=== PATIENT | female | born 1995 | race Caucasian/White ===

== ENCOUNTER → 2017-08-02 11:06 | Outpatient (CLI) | payer MEDICAID, SELFPAY ==
[2017-08-02 11:37] LABS: Absolute Lymphocyte Count 1.91 X10^3/ul (0.83-4.51); Absolute Neutrophil Count 7.8 X10^3/uL (2.0-7.7); Basophil# 0.01 X10^3/uL; Basophil% 0.1 % (0-1); Eosinophil# 0.21 X10^3/uL; Hematocrit 38.7 % (37-47); Hemoglobin 12.4 g/dl (12.0-15.0); Lymphocyte # 1.91 X10^3/ul (4.0); Lymphocyte % 18.1 % (19-41); Mean Corpuscular Hgb 29.9 pg (27.0-32.0); Mean Corpuscular Volume 93.3 fL (81-99); Mean Platelet Vol. 11.1 fl (6.2-12.0); Monocyte% 5.7 % (0-10); Neutrophil # 7.81 X10^3/uL (2.7-7.7); Neutrophil % 73.7 % (47-70); Platelet Count 223 K/mm3 (150-450); RBC Distribution Width CV 14.4 % (11.6-14.6); RBC Distribution Width SD 48.6 fl (35.1-43.9); Red Blood Count 4.15 M/mm3 (4.2-5.4); White Blood Count 10.6 K/mm3 (4.4-11.0)
[2017-08-02 11:39] LABS: POSITIVE COUNT NO; POSITIVE DIFFERENTIAL NO; POSITIVE MORPHOLOGY NO
[2017-08-02 11:56] LABS: Glucose Challenge Gest 1H 50g 88 mg/dL (70-140)
== END ==
PROVIDERS: Visit Provider Obstetrics & Gynecology
DX: O09.892 Supervision of other high risk pregnancies, second trimester (principal); Z3A.00 Weeks of gestation of pregnancy not specified
CPT/HCPCS: 36415; 82950; 85025

== ENCOUNTER → 2017-08-02 18:23 | Outpatient (CLI) | payer MEDICAID, SELFPAY | PROVIDERS: Visit Provider Obstetrics & Gynecology | DX: O09.892 Supervision of other high risk pregnancies, second trimester (principal); Z3A.00 Weeks of gestation of pregnancy not specified | CPT/HCPCS: 36415; 82950; 85025; 87086; 87088 ==

== ENCOUNTER 2017-08-13 14:31 | Emergency (ER) | payer MEDICAID, SELFPAY ==
[2017-08-13 14:31] VITALS: BP 144/80; PULSE 102; RESP 18; TEMP 36.6; O2SAT 97; BMI 41.9
[2017-08-13] MEDS: 0.9% Normal Saline 1,000 ML 150 ML IV (15:21)
[2017-08-13 15:37] LABS: Absolute Lymphocyte Count 2.57 X10^3/ul (0.83-4.51); Absolute Neutrophil Count 9.4 X10^3/uL (2.0-7.7); Basophil# 0.02 X10^3/uL; Basophil% 0.2 % (0-1); Eosinophil# 0.16 X10^3/uL; Eosinophils% 1.2 % (0-5); Hemoglobin 13.6 g/dl (12.0-15.0); Lymphocyte # 2.57 X10^3/ul (4.0); Lymphocyte % 19.8 % (19-41); Mean Corp Hgb Conc 32.4 g/gl (32-36); Mean Corpuscular Volume 92.5 fL (81-99); Mean Platelet Vol. 10.9 fl (6.2-12.0); Monocyte# 0.81 X10^3/uL; Monocyte% 6.2 % (0-10); Neutrophil # 9.39 X10^3/uL (2.7-7.7); Neutrophil % 72.1 % (47-70); Platelet Count 240 K/mm3 (150-450); RBC Distribution Width CV 14.3 % (11.6-14.6); Red Blood Count 4.54 M/mm3 (4.2-5.4)
[2017-08-13 15:38] LABS: POSITIVE COUNT NO; POSITIVE DIFFERENTIAL NO; POSITIVE MORPHOLOGY NO
[2017-08-13 15:54] LABS: AST(SGOT) 14 U/L (15-37); Alanine Aminotransfer ALT/SGPT 15 U/L (13-56); Albumin, Serum 3.2 g/dL (3.2-5.0); Alkaline Phosphatase 86 U/L (45-117); Anion Gap 12 (5-15); BUN 8 mg/dL (7-18); Bilirubin, Direct 0.08 mg/dL (0.00-0.30); Calcium,Total 9.2 mg/dL (8.5-10.1); Chloride 106 mmol/L (98-107); Creatinine, Serum 0.53 mg/dL (0.55-1.02); EST Glomerular Filtration Rate 151 mL/min (>60); Est Glom Filt Rate - Afr Amer 183 mL/min (>60); Estimated Creatinine Clearance 149.82 ml/min; Globulin 4.7 g/dL (2.2-4.2); Glucose 66 mg/dL (74-106); Potassium 3.5 mmol/L (3.5-5.1); Protein, Total 7.9 g/dL (6.4-8.2); Sodium Level 141 mmol/L (136-145); Uric Acid 4.4 mg/dL (2.6-6.0)
[2017-08-13 16:06] LABS: Mucous, Urine 0 SEEN /hpf (<or=2+)
[2017-08-13 16:07] LABS: Color, Urine Yellow (Yellow); Glucose, Dipstick Normal (Normal); Leukocyte Esterase-Dipstick 100 /ul (Negative); Nitrite-Dipstick Negative (Negative); Occult Blood-Urine 25 /ul (Negative); Protein-Dipstick Negative (Negative); Specific Gravity, Urine 1.025 (1.002-1.030); Urine Bilirubin Dipstick Negative (Negative); Urine Clarity Sl. Cloudy (Clear); Urine Urobilinogen Normal (Normal)
[2017-08-13 16:30] VITALS: BP 120/72; PULSE 93; RESP 16; O2SAT 97
[2017-08-13 16:48] LABS: Ketone-Dipstick 150 mg/dl (Negative)
[2017-08-13 16:50] LABS: Red Blood Cells-Urine 0-5 SEEN /hpf (0-5); White Blood Cells 5-10 SEEN /hpf (0-5)
[2017-08-13 16:51] LABS: Bacteria 2+ /hpf (None Seen); Squamous Epithelial Cells - UA 10-25 SEEN /hpf (5-10)
--- NOTE | 2017-08-13 17:08 | ED.DCSUM_ITS ---
- ER Visit Summary Date of Service: 08/13/17 Chief Complaint: Multitude of symptoms History of Present Illness: The patient is a 21 F who is 28 weeks gestation was sent in by her OB Dr. Dorothy Mcdermott because of concern for possible PE as well as elevated blood pressure. Patient states last 2 visits to the office her blood pressure was elevated. She does not have history of hypertension. She does complain of intermittent global headache. She denies any double vision, blurred vision, loss of vision or change in vision. She denies any ringing in her ears decreased hearing or problems with balance. She denies trouble with speech or swallowing. She denies paresthesia, anesthesia motor because of her extremities. She denies any chest pain presently. Her chest pain is migratory as is her abdominal pain. She also complains of intermittent shortness of breath. She does complain of nausea without vomiting diarrhea. She does have frequency without dysuria, hematuria or urgency. She denies any leg pain or discoloration. She states her ankles are swollen and this is a new finding since last office visit. There is no history of trauma. She denies any skin lesions. There is no history of PE or DVT. She has been 3 times with 1 miscarriage. This is her third . Physical Examination: Initial blood pressure is elevated 144/80. She had several blood pressures. The next blood pressure was 146/77, repeat was 132/72 and most recent was systolic of 126. Head is atraumatic normocephalic. Pupils are equal round reactive. Extraocular muscles are intact. TMs are pearly white with landmarks noted. Nares patent with no drainage. Posterior pharynx without erythema or exudate. Uvula is midline. There is no dysphonia or dysphasia. Trachea is midline. There is no stridor with auscultation of the neck. Heart is regular without murmur, gallop or rub. S1 and S2 are normal. Lungs are clear to auscultation with good movement of air bilaterally. Abdomen is soft nontender with gravid uterus. heart tones were documented by nurse and recorded. There is no CVA tenderness noted. There is minimal edema of both right and left ankle and feet. Patient is alert and oriented ?3. Motor is 5 over 5. Sensory is intact. DTRs are symmetric with no clonus or Babinski sign. Cranial 2 through 12 are intact. Cerebellar testing is normal. Test Results: White count is elevated 13.0 thousand otherwise CBC normal. Electro panels marked for glucose of 66. Hepatic is normal. Uric acid is normal. Urine is contaminated specimen with 25 epithelial cells. No protein was noted. Emergency Department Course and Treatment: To evaluate patient's edema and complaint of headache with elevated blood pressure CBC, hepatic, BMP, uric acid and UA were obtained. Her history is not consistent with a pulmonary embolus. One would not expect migratory pain and intermittent shortness of breath. Treatment Plan: Dr. Dorothy Araujo was paged after results were known. She was informed of the blood pressure and objective findings. She also was told that the history the patient gave me was different than hers and I am not concerned for pulmonary embolus. She requested patient contact office for follow-up on Tuesday or Tuesday because of the elevated blood pressure and edema. Disposition: Discharge to home with follow-up in 2-3 days Impression: 1. Elevated blood pressure in patient 2. Bilateral pedal edema 3. Migratory chest and abdominal pain 4. Intermittent shortness of breath 5. Headache of unknown etiology This note was generated with [employer] dictation software. It may contain incorrect words, spelling, and punctuation that were not noted in review of the chart prior to signing ED Disposition - Plan for ED Patient: Disposition: Home or Assisted Living Chief Complaint: Shortness of Breath Instructions: ED Hypertension Poss Referrals: Dieter Flores [Primary Care Provider] - Dorothy Mcdermott MD [STAFF PHYSICIAN] - 2 Days Additional Instructions: Call Dr. Dorothy Mcdermott's office on Tuesday to be seen on Tuesday or Tuesday. If you develop a severe headache or have difficulty breathing or swelling of one leg return to the emergency department
[2017-08-13 17:24] VITALS: BP 133/76; PULSE 91; RESP 16; TEMP 36.6; O2SAT 98
== END 2017-08-13 17:25 | disposition home or self-care (01) ==
PROVIDERS: Emergency Provider Emergency Medicine
DX: O26.893 Other specified pregnancy related conditions, third trimester (principal); R03.0 Elevated blood-pressure reading, without diagnosis of hypertension; O12.03 Gestational edema, third trimester; O99.213 Obesity complicating pregnancy, third trimester; R07.9 Chest pain, unspecified; R10.9 Unspecified abdominal pain; R06.02 Shortness of breath; R11.0 Nausea; Z3A.28 28 weeks gestation of pregnancy
CPT/HCPCS: 80048; 80076; 81001; 84550; 85025; 96360; 96361; 99284; J7030; A4216

== ENCOUNTER 2017-08-15 12:15 | Outpatient (CLI) | payer MEDICAID, SELFPAY ==
[2017-08-15 12:41] VITALS: BMI 43.0
[2017-08-15] MEDS: Nitrofurantoin Macrocrystals 100 MG Capsule PO (13:16)
[2017-08-15 13:19] LABS: Hematocrit 36.9 % (37-47); Hemoglobin 12.2 g/dl (12.0-15.0); Mean Corp Hgb Conc 33.1 g/gl (32-36); Mean Corpuscular Hgb 30.3 pg (27.0-32.0); Mean Corpuscular Volume 91.8 fL (81-99); Mean Platelet Vol. 11.1 fl (6.2-12.0); Platelet Count 233 K/mm3 (150-450); RBC Distribution Width CV 14.2 % (11.6-14.6); RBC Distribution Width SD 46.7 fl (35.1-43.9); Red Blood Count 4.02 M/mm3 (4.2-5.4); White Blood Count 12.2 K/mm3 (4.4-11.0)
[2017-08-15 13:21] LABS: Scan Indicated on CBC? Y/N NO
[2017-08-15 13:23] LABS: Partial Thromboplast Time 29.4 Seconds (24.1-36.2)
[2017-08-15 13:25] LABS: Protein, Urine (Random) 10.8 mg/dL (<11.9); Protein:Creat Ratio 89 mg/g CRE (0-200)
[2017-08-15 13:26] LABS: AST(SGOT) 12 U/L (15-37); Alanine Aminotransfer ALT/SGPT 13 U/L (13-56); Creatinine, Serum 0.41 mg/dL (0.55-1.02); EST Glomerular Filtration Rate 206 mL/min (>60); Est Glom Filt Rate - Afr Amer 250 mL/min (>60); Estimated Creatinine Clearance 193.67 ml/min; Uric Acid 4.5 mg/dL (2.6-6.0)
--- NOTE | 2017-08-16 01:55 | OB.TRI.NOTE ---
History of Present Illness Date of Service: 08/15/17 Was patient seen by the physician?: Yes Reason For Visit: R/O PIH Date of Service: 08/16/17 Gestational age: 27w6d History of Present Illness: 21 yo @ 27w6d presents with elevated bps in the office. she has had normal bps in and has had increasing fatigue and myalgias today, total body discomfort and then had elevated bps in the office. bps here on l and d are all within normal limits. ROS: general: see hpi GI: negative gas pump attendant: no vb lof no regualr ctx, feels good fm Home Medications Medication Instructions Recorded 1 tab PO QDAY 05/19/17 vitamin,calcium,svflmcva-epae-luytx acid tablet Allergies No Known Allergies Allergy (Verified 08/15/17 11:13) - Pertinent Past Medical History Pertinent Past Medical History: negative Physical Exam General: Alert Cardiovascular: Regular rate Lungs: Clear to auscultation Abdomen: Soft, Non Tender, Gravid NST - FHR Rate Baby A Baseline: 140 Variability:: Moderate Accelerations:: 10 x 10 Decelerations:: None NST Reactive:: Yes, Appropriate for gestational age FHR Category:: Category I Uterine Activity:: no regular ctx Impression/Plan initially seen for elevated bp- all bps now are WNL, normal preeclampsia labs, dc home preeclampsia precautions and fu in office in 1 week
--- NOTE | 2017-08-16 01:58 | OB.TRI.HP_ITS ---
History of Present Illness Date of Service: 08/15/17 Was patient seen by the physician?: Yes Reason For Visit: R/O PIH Date of Service: 08/16/17 Gestational age: 27w6d History of Present Illness: 21 yo @ 27w6d presents with elevated bps in the office. she has had normal bps in and has had increasing fatigue and myalgias today, total body discomfort and then had elevated bps in the office. bps here on l and d are all within normal limits. ROS: general: see hpi GI: negative investment counselor: no vb lof no regualr ctx, feels good fm Home Medications Medication Instructions Recorded 1 tab PO QDAY 05/19/17 vitamin,calcium,wqovszhf-pffr-dgkgp acid tablet Allergies No Known Allergies Allergy (Verified 08/15/17 11:13) - Pertinent Past Medical History Pertinent Past Medical History: negative Physical Exam General: Alert Cardiovascular: Regular rate Lungs: Clear to auscultation Abdomen: Soft, Non Tender, Gravid NST - FHR Rate Baby A Baseline: 140 Variability:: Moderate Accelerations:: 10 x 10 Decelerations:: None NST Reactive:: Yes, Appropriate for gestational age FHR Category:: Category I Uterine Activity:: no regular ctx Impression/Plan initially seen for elevated bp- all bps now are WNL, normal preeclampsia labs, dc home preeclampsia precautions and fu in office in 1 week
== END 2017-08-15 13:50 | disposition home or self-care (01) ==
LOC: WPOUT 12:26 → WP 12:41
PROVIDERS: Visit Provider Obstetrics & Gynecology
DX: O14.92 Unspecified pre-eclampsia, second trimester (principal); Z3A.27 27 weeks gestation of pregnancy
CPT/HCPCS: 36415; 59025; 59050; 82565; 82570; 84156; 84450; 84460; 84550; 85027; 85610; 85730; 99218; G0378

== ENCOUNTER 2017-08-22 09:30 | Outpatient (CLI) | payer MEDICAID, SELFPAY ==
--- NOTE | 2017-08-22 09:33 | US_ITS ---
STUDY: SECOND AND THIRD TRIMESTER OBSTETRICAL ULTRASOUND - LIMITED REASON FOR EXAM: Female, 21 years old. Placenta previa noted on previous study growth LMP: PRIOR ULTRASOUND: None. TECHNIQUE: Transabdominal ultrasound evaluation was performed. FINDINGS: There is a single intrauterine fetus. The fetus is in a cephalic presentation. There is demonstrated cardiac activity with a heart rate of 156 bpm. There is a normal amniotic fluid volume. The largest amniotic fluid pocket measures 4.7 cm. The amniotic fluid index (DOC) is 15.2 cm. The placenta is posterior in location and is not low lying. There are Grade 0 placental changes. The cervix measures 3.8 cm in length. BIOMETRY: BPD: 6.9: 28 weeks, 0 days HC: 26.1: 28 weeks, 4 days AC: 24.0: 28 weeks, 3 days FL: 5.3: 28 weeks, 2 days Age by LMP: 28 weeks, 6 days. ANASTASIIA by LMP: November 08, 2017. age by current US: 28 weeks, 3 days. ANASTASIIA by current US: November 11, 2017. Estimated weight: 1202 grams, +/- 176 grams, 19 percentile. US/OB Limited With Biometrics IMPRESSION: age by current US: 28 weeks, 3 days. ANASTASIIA by current US: November 11, 2017. Estimated weight: 1202 grams, +/- 176 grams, 19 percentile. Electronically Signed: Alisa Briceno MD at 3:30 EDT Tel , Service support ,
[2017-08-22 12:44] VITALS: BMI 43.6
[2017-08-22] MEDS: Betamethasone/Betamethasone 30 MG/5 ML Vial 12 MG IM (13:22)
[2017-08-22 13:26] LABS: Hematocrit 37.7 % (37-47); Hemoglobin 12.2 g/dl (12.0-15.0); Mean Corp Hgb Conc 32.4 g/gl (32-36); Mean Corpuscular Hgb 29.8 pg (27.0-32.0); Mean Platelet Vol. 11.1 fl (6.2-12.0); Platelet Count 240 K/mm3 (150-450); RBC Distribution Width CV 14.4 % (11.6-14.6); RBC Distribution Width SD 48.4 fl (35.1-43.9); White Blood Count 12.2 K/mm3 (4.4-11.0)
[2017-08-22 13:27] LABS: Prothrombin Time (Protime)PT. 13.2 SECONDS (11.7-14.9); Scan Indicated on CBC? Y/N NO
[2017-08-22 13:28] LABS: Partial Thromboplast Time 28.4 Seconds (24.1-36.2)
[2017-08-22 13:35] LABS: AST(SGOT) 13 U/L (15-37); Alanine Aminotransfer ALT/SGPT 15 U/L (13-56); EST Glomerular Filtration Rate 162 mL/min (>60); Est Glom Filt Rate - Afr Amer 196 mL/min (>60); Estimated Creatinine Clearance 158.81 ml/min; Uric Acid 4.6 mg/dL (2.6-6.0)
[2017-08-22 14:00] LABS: Protein, Urine (Random) 6.1 mg/dL (<11.9)
[2017-08-22 14:01] LABS: Protein:Creat Ratio 93 mg/g CRE (0-200)
--- NOTE | 2017-08-23 00:21 | OB.TRI.NOTE ---
History of Present Illness Date of Service: 08/22/17 Was patient seen by the physician?: No Reason For Visit: R/O PRE Date of Service: 08/22/17 Gestational age: 28w6d History of Present Illness: elevate dbp in office, normal on l and d, labs done and WNL negative urine protein. Home Medications Medication Instructions Recorded 1 tab PO QDAY 05/19/17 vitamin,calcium,voictofo-hckq-gbxgi acid tablet citalopram 20 mg tablet 20 mg PO QDAY #30 tab 08/22/17 miscellaneous medical supply misc See Dose Instructions .ROUTE 08/22/17 .MEDSUPPLY #1 ea Allergies No Known Allergies Allergy (Verified 08/22/17 11:39) NST - FHR Rate Baby A Baseline: 140 Variability:: Moderate Accelerations:: 10 x 10 Decelerations:: None NST Reactive:: Yes FHR Category:: Category I Uterine Activity:: no Impression/Plan gestational hypertension- bloodwork urine normal bmz given fu in 24 hours for repeat dose precatuions reviewed nst reactive
== END 2017-08-22 14:30 | disposition home or self-care (01) ==
LOC: OPUS 09:31 → WPOUT 12:23 → WP 12:23
PROVIDERS: Visit Provider Obstetrics & Gynecology
DX: O16.3 Unspecified maternal hypertension, third trimester (principal); Z3A.28 28 weeks gestation of pregnancy
CPT/HCPCS: 36415; 59050; 76816; 82565; 82570; 84156; 84450; 84460; 84550; 85027; 85610; 85730; 96372; 99218; G0378; J0702

== ENCOUNTER → 2017-08-22 13:51 | Outpatient (CLI) | payer MEDICAID, SELFPAY ==
[2017-08-22 17:15] LABS: Creatinine, Urine (random) < 13.00 mg/dL (NO RANGE EST.); Protein, Urine (Random) < 6.0 mg/dL (<11.9)
== END ==
PROVIDERS: Visit Provider Obstetrics & Gynecology
DX: I10 Essential (primary) hypertension (principal)
CPT/HCPCS: 82570; 84156

== ENCOUNTER 2017-08-23 13:05 | Outpatient (CLI) | payer MEDICAID, SELFPAY ==
[2017-08-23 13:31] VITALS: BMI 43.7
[2017-08-23] MEDS: Betamethasone/Betamethasone 30 MG/5 ML Vial 12 MG IM (13:31)
== END 2017-08-23 13:40 | disposition home or self-care (01) ==
LOC: WPOUT 13:13 → WP 13:14
PROVIDERS: Visit Provider Obstetrics & Gynecology
DX: O13.3 Gestational [pregnancy-induced] hypertension without significant proteinuria, third trimester (principal); Z3A.28 28 weeks gestation of pregnancy
CPT/HCPCS: 96372; 99218; G0378; J0702

== ENCOUNTER → 2017-08-25 16:20 | Outpatient (CLI) | payer MEDICAID, SELFPAY ==
[2017-08-25 17:02] LABS: Protein:Creat Ratio 87 mg/g CRE (0-200)
== END ==
PROVIDERS: PCP Family Medicine; Visit Provider Nurse Practitioner Women's Health
DX: O13.9 Gestational [pregnancy-induced] hypertension without significant proteinuria, unspecified trimester (principal); Z3A.00 Weeks of gestation of pregnancy not specified
CPT/HCPCS: 82570; 84156

== ENCOUNTER 2017-09-18 12:15 | Outpatient (CLI) | payer MEDICAID, SELFPAY ==
[2017-09-18 12:38] VITALS: BMI 43.4
--- NOTE | 2017-09-19 18:49 | OB.TRI.NOTE ---
History of Present Illness Date of Service: 09/18/17 Was patient seen by the physician?: No Reason For Visit: HIGH BLOOD PRESSURE Date of Service: 09/18/17 Final ANASTASIIA: 11/08/17 Final ANASTASIIA Source: US <20 weeks Gestational age: 32 Weeks and 5 Days History of Present Illness: 32+ week intrauterine presents for decreased movement. She has also noticed elevated blood pressures at home. Took her blood pressure at home and it was 140 over 80s. Home Medications Medication Instructions Recorded 1 tab PO QDAY 05/19/17 vitamin,calcium,jpyndpbo-qrhx-zrnhb acid tablet citalopram 20 mg tablet 20 mg PO QDAY #30 tab 08/22/17 miscellaneous medical supply misc See Dose Instructions .ROUTE 08/22/17 .MEDSUPPLY #1 ea Allergies No Known Allergies Allergy (Verified 09/14/17 14:34) NST - FHR Rate Baby A NST Reactive:: Yes FHR Category:: Category I Impression/Plan 32+ week intrauterine with decreased movement and some elevated blood pressures noted at home. [place] some movement on way to hospital. Blood pressures upon arrival were normal. movement also noted. Reactive nonstress test. Will discharge to home with routine instructions. No other PIH symptoms noted.
--- NOTE | 2017-09-19 18:53 | OB.TRI.HP_ITS ---
History of Present Illness Date of Service: 09/18/17 Was patient seen by the physician?: No Reason For Visit: HIGH BLOOD PRESSURE Date of Service: 09/18/17 Final ANASTASIIA: 11/08/17 Final ANASTASIIA Source: US <20 weeks Gestational age: 32 Weeks and 5 Days History of Present Illness: 32+ week intrauterine presents for decreased movement. She has also noticed elevated blood pressures at home. Took her blood pressure at home and it was 140 over 80s. Home Medications Medication Instructions Recorded 1 tab PO QDAY 05/19/17 vitamin,calcium,yhkxdzrk-yflx-xcrfm acid tablet citalopram 20 mg tablet 20 mg PO QDAY #30 tab 08/22/17 miscellaneous medical supply misc See Dose Instructions .ROUTE 08/22/17 .MEDSUPPLY #1 ea Allergies No Known Allergies Allergy (Verified 09/14/17 14:34) NST - FHR Rate Baby A NST Reactive:: Yes FHR Category:: Category I Impression/Plan 32+ week intrauterine with decreased movement and some elevated blood pressures noted at home. [place] some movement on way to hospital. Blood pressures upon arrival were normal. movement also noted. Reactive nonstress test. Will discharge to home with routine instructions. No other PIH symptoms noted.
== END 2017-09-18 13:25 | disposition home or self-care (01) ==
LOC: WPOUT 12:22 → WP 12:23
PROVIDERS: PCP Family Medicine; Visit Provider Obstetrics & Gynecology
DX: O36.8130 Decreased fetal movements, third trimester, not applicable or unspecified (principal); R03.0 Elevated blood-pressure reading, without diagnosis of hypertension; Z3A.32 32 weeks gestation of pregnancy
CPT/HCPCS: 59025; 59050; 99218; G0378

== ENCOUNTER → 2017-10-11 16:58 | Outpatient (CLI) | payer MEDICAID, SELFPAY ==
[2017-10-11 18:15] LABS: Group B Strep DNA By PCR Negative (Negative); Internal Control PASS; Probe Check PASS; Specimen Processing Control PASS
== END ==
PROVIDERS: Visit Provider Obstetrics & Gynecology
DX: O09.893 Supervision of other high risk pregnancies, third trimester (principal); Z3A.00 Weeks of gestation of pregnancy not specified
CPT/HCPCS: 87081; 87653

== ENCOUNTER → 2017-10-19 14:42 | Outpatient (CLI) | payer MEDICAID, SELFPAY ==
--- NOTE | 2017-10-19 14:44 | US_ITS ---
STUDY: SECOND AND THIRD TRIMESTER OBSTETRICAL ULTRASOUND - LIMITED REASON FOR EXAM: Female, 22 years old. Growth. LMP: February 01, 2017 PRIOR ULTRASOUND: OB ultrasound August 22, 2017 TECHNIQUE: Transabdominal ultrasound evaluation was performed. FINDINGS: There is a single intrauterine fetus. The fetus is in a cephalic presentation. There is demonstrated cardiac activity with a heart rate of 140 bpm. There is a normal amniotic fluid volume. The largest amniotic fluid pocket measures 4.1 x 1.9 cm. The amniotic fluid index (DOC) is 14.68 cm. The placenta is fundal in location. There are Grade 1 placental changes. The cervix is moderately obscured, but grossly appears closed. BIOMETRY: BPD: 8.84 cm: 35 weeks, 6 days HC: 32.43 cm: 36 weeks, 5 days AC: 35.11 cm: 39 weeks, 1 days FL: 7.12 cm: 36 weeks, 4 days CI: 78% FL/BPD: 81% FL/AC: 20% HC/AC: 0.92 Age by LMP: 37 weeks, 1 days. ANASTASIIA by LMP: November 08, 2017. age by prior US: 36 weeks, 5 days. ANASTASIIA by prior US: November 11, 2017. age by current US: 37 weeks, 1 days. ANASTASIIA by current US: November 08, 2017. Estimated weight: 3304 grams, +/- 482 grams, 73 percentile. US/OB Limited With Biometrics IMPRESSION: 1. Single living intrauterine fetus showing normal interval growth since prior study. Estimated date of delivery by today's study is November 08, 2017. 2. Estimated weight is 3304 g. 3. The cervix is obscured. 4. Grade 1 fundal placenta is not low-lying. 5. Normal amniotic fluid volume with index of 14.68 cm. Electronically Signed: Nash Leon MD at 15:42 EDT , Service support ,
== END ==
PROVIDERS: PCP Family Medicine; Visit Provider Obstetrics & Gynecology
DX: O09.893 Supervision of other high risk pregnancies, third trimester (principal); Z3A.00 Weeks of gestation of pregnancy not specified
CPT/HCPCS: 76816

== ENCOUNTER 2017-11-02 14:45 | Outpatient (CLI) | payer MEDICAID, SELFPAY ==
[2017-11-02 15:42] VITALS: BMI 44.8
--- NOTE | 2017-11-05 02:56 | OB.TRI.NOTE ---
History of Present Illness Date of Service: 11/02/17 Reason For Visit: R/O LABOR Date of Service: 11/02/17 Final ANASTASIIA Source: US <20 weeks History of Present Illness: presents for ctx Allergies No Known Allergies Allergy (Verified 10/19/17 11:28) - Pertinent Past Medical History Surgical History: Past Surgical History (Last Reviewed 10/19/17 @ 11:29 by Rhea Haq) delivery delivered H/O spinal fusion History of tonsillectomy History of wisdom tooth extraction, class II edentulism NST - FHR Rate Baby A Baseline: 120-130 Variability:: Moderate Accelerations:: 15 x 15 Decelerations:: None NST Reactive:: Yes FHR Category:: Category I Uterine Activity:: q3-6 Impression/Plan false labor no cervical change dc home
== END 2017-11-02 16:07 | disposition home or self-care (01) ==
LOC: WPOUT 14:51 → WP 14:51
PROVIDERS: Family Provider Family Medicine; PCP Family Medicine; Visit Provider Obstetrics & Gynecology
DX: O34.219 Maternal care for unspecified type scar from previous cesarean delivery (principal); Z3A.00 Weeks of gestation of pregnancy not specified
CPT/HCPCS: 59050; 99218; G0378

== ENCOUNTER 2017-11-07 05:32 | Inpatient (IN) | payer MEDICAID, SELFPAY ==
[2017-11-07 05:17] VITALS: BMI 45.1
[2017-11-07 05:27] LABS: ROM Internal Control Test YES-OK TO RESULT pt. (Internal QC)
[2017-11-07 05:28] LABS: ROM Patient Test POSITIVE (Negative)
[2017-11-07] MEDS: Lactated Ringers 1,000 ML 50 ML IV (05:30)
[2017-11-07 06:24] LABS: Hematocrit 39.4 % (37-47); Hemoglobin 12.7 g/dl (12.0-15.0); Mean Corp Hgb Conc 32.2 g/gl (32-36); Mean Corpuscular Hgb 29.7 pg (27.0-32.0); Mean Corpuscular Volume 92.1 fL (81-99); Mean Platelet Vol. 11.9 fl (6.2-12.0); Platelet Count 190 K/mm3 (150-450); RBC Distribution Width CV 16.6 % (11.6-14.6); RBC Distribution Width SD 55.3 fl (35.1-43.9); Red Blood Count 4.28 M/mm3 (4.2-5.4); Scan Indicated on CBC? Y/N NO; White Blood Count 9.6 K/mm3 (4.4-11.0)
[2017-11-07] MEDS: Ondansetron 4 MG/2 ML Vial IV (09:08)
[2017-11-07] MEDS: Oxytocin 30 units/NS 500 ml 30 UNITS/500 ML IV.SOLN 334 UNITS IV (11:36)
[2017-11-07] MEDS: Oxytocin 30 units/NS 500 ml 30 UNITS/500 ML IV.SOLN 167 UNITS IV (12:06)
--- NOTE | 2017-11-07 13:00 | HP.PCM_ITS ---
- Problem List (1) Scoliosis Status: Acute Qualifiers: Comment: consultation with MFM- cleared for vaginal delivery, may have difficulty with epidural (2) Supervision of other high risk pregnancies, third trimester Status: Acute Comment: PRR ANASTASIIA 11/08/17 girl Anegla Edmonds Margarito (3) Hypertension affecting , antepartum Status: Acute Comment: spontaneously resolved in the past, no meds. normal pressures in . weekly nsts and growth us q 4 weeks, plan delivery by 39-40 weeks (4) Contraception Status: Acute Qualifiers: Comment: plan lilletta 6 wk pp (5) Anxiety during , antepartum Status: Acute Comment: celexa (6) History of delivery, antepartum Status: Acute Comment: reviewed prior operative note, plan TOLAC, 63% chance success, uptodate handout given, consent form signed. obtain MFM consult History Date of Admission: 11/07/17 Final ANASTASIIA: 11/08/17 Final ANASTASIIA Source: US <20 weeks Gestational age: 39 Weeks and 6 Days History of this : This is a 22 year-old, , at 39 weeks gestational age presents IAL 4 cm dilated and SROM Surgical History: Surgical History (Last Reviewed 10/19/17 @ 11:29 by Rhea Haq) delivery delivered O82 H/O spinal fusion Z98.1 History of tonsillectomy Z98.890, Z90.89 History of wisdom tooth extraction, class II edentulism K08.492 Allergies No Known Allergies Allergy (Verified 11/07/17 05:22) Home Medications: Home Medications vitamin,calcium,doafofrm-vkvm-tadey acid tablet 1 tab PO QDAY 05/19/17 Citalopram Hydrobromide [Citalopram HBr] 20 mg PO QDAY 11/07/17 Smoking Status: Never smoker Alcohol: None Number of Fetus(es): 1 Heart Tracin moderate variability reactive no decels cat I TOCO Analysis: q3-5 History Past Pregnancies: Past Pregnancies previous cs secondary to socoliosis Delivery Date Name GA/Weeks Outcome Route Weight Gender Labor Length Anesthesia Delivery Location Provider FOB Labs: Mom's Labs & Results 11/07/17 11/07/17 11/07/17 05:17 05:30 05:30 WBC 9.6 RBC 4.28 Hgb 12.7 Hct 39.4 MCV 92.1 MCH 29.7 MCHC 32.2 RDW 16.6 H RDW Differential 55.3 H Plt Count 190 MPV 11.9 Vag Amniotic Fld Detect POSITIVE H Blood Type O POSITIVE Antibody Screen NEGATIVE Course Did the patient receive Yes care? Labs Blood Type: O RH: POSITIVE RPR/VDRL/Syphilis Nonreactive Rubella status Immune HbSAg Negative Date Done: 03/24/17 HIV/AIDS Non-Reactive Group B Strep: Negative Current Obstetrical History Gestational Diabetes No Incompetent Cervix No Infertility No IUGR No Macrosomia No Hypertension/Pre-eclampsia No Placenta Previa/Abruption Yes: resolved PTL/PROM No Uterine anomaly No Oligohydramnios No Polyhydramnios No Multiple gestation No Past Medical History Asthma No Diabetes No Hypertension No Heart disease No Mitral valve prolapse No Neurologic/Seizure disorder/ No Migraines Kidney disease No Liver disease No Varicosities No Clotting disorders/Hx of DVT No Thyroid Dysfunction No Other medical diseases No Psychiatric disorders Yes: anxiety Major trauma No Abnormal PAP smear No Sleep apnea No Mammogram in the last 2 years No Social History Marital Status: Alleged father margarito Hx Smoking No Smoking Status Never smoker How long have you used n/a substances (years)? What date/time did you last n/a use any of the above? Have you had any previous n/a inpatient or outpatient treatment Expected Delivery Method: Review of Systems Constitutional: Denies: Fever, Malaise Eyes: Denies: Blurred vision, Vision Change HEENT: Denies: Head Aches, Visual Changes Cardiovascular: Denies: Chest Pain, Palpitations Respiratory: Denies: Cough, Shortness of Breath, Wheezing Gastrointestinal: Denies: Abdominal Pain, Diarrhea, Nausea, Vomiting Genitourinary: Denies: Dysuria, Hematuria Musculoskeletal: Denies: Joint Pain, Muscle pain Skin: Denies: Lesions, Rash Neurological: Denies: Blurred vision, Focal weakness, Headaches Psychiatric: Denies: Anxiety, Depression Endocrine: Denies: Heat/ Cold Intolerance Hematologic/ Lymphatic: Denies: Easy Bruising, Easy Bleeding Physical Exam General: Alert, Cooperative, No apparent distress HEENT: Atraumatic, Normocephalic. Negative for: Thyromegaly, Lymphadenopathy Cardiovascular: Regular rate Lungs: Normal air movement Abdomen: Soft, Non Tender, Gravid Neurological: Deep Tendon Reflexes 2+/4 and Symmetrical, Neuro grossly intact. Negative for: Clonus COMPLIANCE TECHNICIAN: Normal external genitalia. Negative for: Vulvar lesions Estimated gestational size: Appropriate for gestational size Presentation: Cephalic Assessment/Plan All Active Problems (Last Reviewed 10/19/17 @ 11:29 by Rhea Haq) Scoliosis (Acute) Supervision of other high risk pregnancies, third trimester (Acute) Hypertension affecting , antepartum (Acute) Contraception (Acute) Anxiety during , antepartum (Acute) History of delivery, antepartum (Acute) Placenta previa (Resolved) Supervision of normal (Resolved) Gestational hypertension (Ruled-out) This is a 22 year-old, at 39 weeks gestational age presents IAL plan severe scoliosis- planning on no epidural. gbs neg
[2017-11-07 16:00] VITALS: BP 137/62; PULSE 100; RESP 18; TEMP 37.2; O2SAT 97
[2017-11-07] MEDS: Naproxen 250 MG Tablet PO (16:10)
[2017-11-07] MEDS: Citalopram 20 MG Tablet PO (16:11)
[2017-11-07] MEDS: Prenatal Vits Tablet 1 TABLET PO (16:11)
--- NOTE | 2017-11-07 16:53 | NURSING ---
Patient transferred to room 6. Ambulating independently.
[2017-11-07 20:00] VITALS: BP 127/70; PULSE 77; RESP 16; TEMP 36.2; O2SAT 98
--- NOTE | 2017-11-07 20:51 | PCM.OB.VAG ---
- Problem List (1) Scoliosis Status: Acute Qualifiers: Comment: consultation with MFM- cleared for vaginal delivery, may have difficulty with epidural (2) Supervision of other high risk pregnancies, third trimester Status: Acute Comment: PRR ANASTASIIA 11/08/17 girl Angela Edmonds Margarito (3) Hypertension affecting , antepartum Status: Acute Comment: spontaneously resolved in the past, no meds. normal pressures in . weekly nsts and growth us q 4 weeks, plan delivery by 39-40 weeks (4) Contraception Status: Acute Qualifiers: Comment: plan lilletta 6 wk pp (5) Anxiety during , antepartum Status: Acute Comment: celexa (6) History of delivery, antepartum Status: Acute Comment: reviewed prior operative note, plan TOLAC, 63% chance success, uptodate handout given, consent form signed. obtain MFM consult Vaginal Delivery Maternal Presentation: Active Labor, Spontaneous Rupture of Membranes Amniotic Fluid Description: Clear Final ANASTASIIA: 11/08/17 Gestational age: 39 Weeks and 6 Days Date of Procedure: 11/07/17 Pre-Operative Diagnosis: ial srom Post-Operative Diagnosis: same Surgery/ Procedure Performed: Spontaneous Vaginal Delivery Type of Anesthesia: None, Local with 1% lidocaine Description of Procedure: Patient began pushing and delivered the head in the BELEN presentation. The head was delivered atraumatically. The anterior and posterior shoulders delivered without complication followed by the rest of the and the was placed on the maternal abdomen. Delayed cord clamping was employed for approximately 60 seconds. Cord was clamped and cut and gentle traction was applied to the cord and the placenta delivered spontaneously immediately following it was noted to be intact with three-vessel cord. The perineum and vagina were inspected and noted to have a second-degree laceration that was repaired in the usual fashion with 3-0 Vicryl repeat. EBL was 200 cc. Patient and tolerated delivery well. Presentation: BELEN Placental Delivery Description: Spontaneous Placenta Disposition: [facility] Cord Entanglement: None Episiotomy Description: None Laceration: Perineal Extension/lac, 2nd degree Medications given after delivery: IV Pitocin Complications: None
[2017-11-07] MEDS: Acetaminophen 500 MG Tablet 1000 MG PO (20:55)
[2017-11-08 00:39] VITALS: BP 114/51; PULSE 77; RESP 18; TEMP 36; O2SAT 98
[2017-11-08 04:00] VITALS: BP 114/63; PULSE 79; RESP 16; TEMP 36.3; O2SAT 96
[2017-11-08] MEDS: Naproxen 250 MG Tablet PO (04:29)
[2017-11-08 08:00] VITALS: BP 102/44; PULSE 78; RESP 16; TEMP 36.2
[2017-11-08] MEDS: Prenatal Vits Tablet 1 TABLET PO (08:31)
[2017-11-08] MEDS: Citalopram 20 MG Tablet PO (08:31)
[2017-11-08] MEDS: Senna/Docusate Sodium 1 Tablet PO (08:32)
[2017-11-08] MEDS: Dibucaine 30 GM Tube 1 APPLIC TOPICAL (08:48)
--- NOTE | 2017-11-08 10:57 | PCM.PN.OB ---
Subjective: doing well no complaints - Physical Exam General: Alert, Oriented x3 Vital Signs Temp Pulse Resp BP Pulse Ox 97.2 F L 78 16 102/44 L 96 11/08/17 08:00 11/08/17 08:00 11/08/17 08:00 11/08/17 08:00 11/08/17 04:00 Oxygen Delivery Method Room Air Weight: 275 lb 9.245 oz Body Mass Index (BMI) 45.1 Intake and Output for Last 24 Hours 11/06/17 11/07/17 11/08/17 23:59 23:59 23:59 Intake Total 284 / 284 Output Total 1550 / 1550 Balance -1266 / -1266 Medical Necessity - Tobacco Use Smoking Status: Never smoker Assessment/Plan All Active Problems (Last Reviewed 10/19/17 @ 11:29 by Rhea Haq) Scoliosis (Acute) Supervision of other high risk pregnancies, third trimester (Acute) Hypertension affecting , antepartum (Acute) Contraception (Acute) Anxiety during , antepartum (Acute) History of delivery, antepartum (Acute) Placenta previa (Resolved) Supervision of normal (Resolved) Gestational hypertension (Ruled-out) s/p routine care dc home
--- NOTE | 2017-11-08 10:58 | DCINST_ITS ---
Discharge Diet: No Restrictions Discharge Activity: Return to Normal Activity, May not drive while taking narcotic pain medications., May Shower May resume sexual activity in: 4-6 weeks Call your doctor if your incision/area has: Continuous Slow Oozing, Sudden Increased Bleeding, Increased Pain/ Swelling, Increased Redness, Foul Smelling Discharge Additional Instructions: If you experience any of the following, contact your healthcare provider. * Bleeding that soaks a pad every hour for 2 hours * Fever 100.4 or higher * Unrelieved incision or abdominal pain * Swelling, redness, discharge or bleeding from your incision or episiotomy site * Your incision begins to separate * Problems urinating (including inability to urinate or burning while urinating) . * Visual changes * Severe headache * Flu-like symptoms * Pain or redness in one of both of your breasts * Pain, warmth, tenderness or swelling in your legs, especially the calf area * Frequent nausea and vomiting * Symptoms of depression or anxiety If you experience any of the following, call 911 or go to the nearest Emergency Room. * Chest pain * Problems breathing * Seizure activity * Partial or complete paralysis of a body part, slurred speech, weakness or drooping of the face, or a sudden inability to walk or hold your balance Allergies/Adverse Reactions: Allergies No Known Allergies Allergy (Verified 11/07/17 05:22) Medications to take at Discharge vitamin,calcium,fevmacat-shov-jovaw acid tablet 1 tab PO QDAY 05/19/17 Citalopram Hydrobromide [Citalopram HBr] 20 mg PO QDAY 11/07/17 Please Follow Up With: Dorothy Mcdermott MD - [phone] When: Call to make an appointment with your doctor in 6 weeks. If you had elevated Blood pressure or 4th degree laceration you will need to be seen in 2 weeks. Primary Care Physician: Dieter Flores MD [Primary Care Provider] -
--- NOTE | 2017-11-08 10:58 | PCM.DCVAG ---
Discharge Diet: No Restrictions Discharge Activity: Return to Normal Activity, May not drive while taking narcotic pain medications., May Shower May resume sexual activity in: 4-6 weeks Call your doctor if your incision/area has: Continuous Slow Oozing, Sudden Increased Bleeding, Increased Pain/ Swelling, Increased Redness, Foul Smelling Discharge Additional Instructions: If you experience any of the following, contact your healthcare provider. Bleeding that soaks a pad every hour for 2 hours Fever 100.4 or higher Unrelieved incision or abdominal pain Swelling, redness, discharge or bleeding from your incision or episiotomy site Your incision begins to separate Problems urinating (including inability to urinate or burning while urinating). Visual changes Severe headache Flu-like symptoms Pain or redness in one of both of your breasts Pain, warmth, tenderness or swelling in your legs, especially the calf area Frequent nausea and vomiting Symptoms of depression or anxiety If you experience any of the following, call 911 or go to the nearest Emergency Room. Chest pain Problems breathing Seizure activity Partial or complete paralysis of a body part, slurred speech, weakness or drooping of the face, or a sudden inability to walk or hold your balance Allergies/Adverse Reactions: Allergies No Known Allergies Allergy (Verified 11/07/17 05:22) Medications to take at Discharge vitamin,calcium,vnhbszkt-slyu-optfy acid tablet 1 tab PO QDAY 05/19/17 Citalopram Hydrobromide [Citalopram HBr] 20 mg PO QDAY 11/07/17 Please Follow Up With: Dorothy Mcdermott MD - [phone] When: Call to make an appointment with your doctor in 6 weeks. If you had elevated Blood pressure or 4th degree laceration you will need to be seen in 2 weeks. Primary Care Physician: Dieter Flores MD [Primary Care Provider] -
--- NOTE | 2017-11-17 11:00 | NURSING ---
Follow up phone call attempted, left message
== END 2017-11-08 13:00 | disposition home or self-care (01) | DRG 372 ==
LOC: WPOUT 05:35
PROVIDERS: Admitting Provider Obstetrics & Gynecology; Family Provider Family Medicine; PCP Family Medicine; Visit Provider Obstetrics & Gynecology
DX: O34.219 Maternal care for unspecified type scar from previous cesarean delivery (principal); O10.92 Unspecified pre-existing hypertension complicating childbirth; O70.1 Second degree perineal laceration during delivery; O75.89 Other specified complications of labor and delivery; M41.9 Scoliosis, unspecified; O99.344 Other mental disorders complicating childbirth; F41.9 Anxiety disorder, unspecified; Z3A.39 39 weeks gestation of pregnancy; Z37.0 Single live birth
CPT/HCPCS: 59025; 59050; 84112; 85027; 86850; 86900; 99218; J7120; G0378; J2405

== ENCOUNTER 2017-11-18 10:18 | Day surgery (SDC) | payer MEDICAID, SELFPAY ==
--- NOTE | 2017-11-17 18:39 | PCM.HP.BLA ---
History and Physical Date of Admission: 11/18/17 HISTORY OF PRESENT ILLNESS 22 year old woman presents with a bleeding lesion right mid cheek. She delivered her baby 2 days ago and during her , she noted this enlarging lesion on her right mid cheek. She denies any trauma. She denies any fever. She is currently . She presents at this time for further evaluation and treatment. PAST MEDICAL HISTORY back problems. Recent baby delivery - 11/07/17. PAST SURGICAL HISTORY section. spinal fusion. tonsillectomy. wisdom tooth extraction, class II edentulism. MEDICATIONS vitamins. Celexa. ALLERGIES None. FAMILY HISTORY Uncle - Non hodgkins lymphoma Grandmother - Heart disease Grandfather - Heart disease SOCIAL HISTORY Smoking Status: Never smoker alcohol intake: never substance use type: does not use caffeine: No REVIEW OF SYSTEMS General - Denies fever, fatigue, and weight loss. Eyes - Denies cataracts and glaucoma. ENT - Denies nasal congestion and sore throat. Endocrine - Denies excessive thirst and urination. Skin - Has enlarging bleeding lesion right mid cheek. Denies skin cancer. Musculoskeletal - Denies joint pain, joint stiffness, weakness of muscles and joints, back pain, and arthritis. Neuro - Denies headaches. Cardiovascular - Denies chest pain, fatigue, and shortness of breath with exertion. Psych - Denies anxiety and depression. Respiratory - Denies chronic cough and shortness of breath. Gastrointestinal - Denies nausea, vomiting, diarrhea, and constipation. Hematologic - Denies abnormal bruising and bleeding. Genitourinary - Denies hematuria and urinary frequency. PHYSICAL EXAM General - Alert and Oriented. HEENT - PERRL. EOMI. Throat is clear. On the right mid cheek is a 1.5 cm friable exophytic lesion that is erythematous. Some bleeding noted. This friable lesion that is clinically consistent with a pyogenic granuloma is in the middle of a congenital pigmented lesion. Has irregular borders. Nontender. Neck - Supple and nontender. No cervical adenopathy. No suspicious lesions noted. Lungs - Clear to auscultation. Heart - Regular rate and rhythm. Abdomen - Soft and nondistended. No suspicious lesions noted. Extremities - FROM. No axillary adenopathy. Radial pulses are palpable. No suspicious lesions noted. Neuro - CN II-XII grossly intact. Psych - Normal mood and affect. ASSESSMENT 1. 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 2. 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 3. Family history of skin cancer. 4. Recent baby delivery. 5. Patient is . PLAN Recommend excision of this bleeding lesion that is clinically consistent with a pyogenic granuloma. Since the pyogenic granuloma occurred in the middle of a congenital pigmented lesion, it will need to be biopsied as well as an incisional biopsy since it is quite large. Will send tissue to Pathology for analysis to rule out carcinoma. Depending on what is found, additional congenital pigmented lesion may need to be excised. It is a large lesion and reconstruction would be with a large skin flap versus skin grafting if the whole lesion is removed. Will check with her OB to see what medications can be safely given during the procedure since she is . Surgery will be done on an outpatient basis under local anesthesia and IV sedation. Patient was informed of the risks and complications of the procedure including alternatives to surgery. These were discussed with the patient personally. Patient voices understanding and wishes to proceed. Some of the risks and complications were included in a form from the [employer]. Will schedule the surgery for next week because it is bleeding and hard to control with pressure at home according to the patient.
[2017-11-18 10:34] VITALS: BP 93/72; PULSE 72; RESP 18; TEMP 36.8; O2SAT 100; BMI 40.4
[2017-11-18] MEDS: Mupirocin Ointment 22gm Tube 1 APPLIC (11:26)
--- NOTE | 2017-11-18 11:40 | GRA_PTH ---
PATIENT: ANEL MILLARD LOC: [facility] [place] U#:[id number] AGE/SX: 22/F ROOM: RE11/18/[address]: Dr. Jamie Hackett MD : 1995 BED: DIS: 11/18/2017 SPEC #: [id number] RECD: 11/21/17 09:51 STATUS: CARMELLA SHANNAN #: [id number] ISMAEL: 11/18/17 11:[address]: Jamie Hackett DEPT: SURGICAL PATHOLOGY RECD BY: Blade Mccullough ENTERED: 11/21/17 10:09 SP TYPE: GRAN KURTIS ESQUIVEL DR: Dr. Dieter Flores MD Tissues: Soft tissues, NOS Procedures: Surgery Specimen Level III HEADER OPERATION: Excision pyogenic granuloma congenial pigmented lesion, right PRE-OP DIAGNOSIS: Pyogenic granuloma (1.5cm) right mid cheek in middle of congenital pigmented lesion. 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 Special stains for fungi is negative for organisms; matched control is appropriate. See comment. SJ:nkechi 11/22/17 COMMENT Melanocytic lesion is not seen in the submitted specimen. MICROSCOPIC DESCRIPTION Slides are reviewed. GROSS DESCRIPTION Received in fixative is one container labeled with the patient's name and designated 1.5 cm pyogenic granuloma right cheek suture luan 12 o'clock. The specimen consists of a piece of phipps-white skin ellipse with a beige nodular lesion. The skin piece measures 2 x 0.6 cm and up to 0.5 cm in thickness. The raised nodular lesion measures 1.6 x 1.6 x 0.7 cm. The lesion is ulcerated. The specimen is inked as follows: 12 o?clock tip ? yellow, 6 o?clock tip ? green, 3 o?clock margin ? blue, 9 o?clock margin ? black. The specimen is inked, serially sectioned and submitted entirely in two cassettes as follows: 1 ? 6 o?clock and 12 o?clock tip, 2 ? rest of the specimen. JONG:nkechi 11/21/17 TC: 5 CPT: 76828, 84029
--- NOTE | 2017-11-18 13:11 | PCM.IMDPSTOP ---
Immediate Post-Op Note Date of Procedure: 11/18/17 Primary Surgeon/Physician: Jamie Hackett gluer machine setup operator: None Pre-Operative Diagnosis: 1. 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 2. 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 3. Family history of skin cancer. 4. Recent baby delivery. 5. Patient is . Post-Operative Diagnosis: Same. Surgery/Procedure Performed:: Excision 1.5 cm pyogenic granuloma and incisional biopsy 3.5 cm congenital pigmented lesion right mid cheek with 2.5 cm layered closure. Description of Surgical Findings:: 22 year old woman presents with a bleeding lesion right mid cheek. She delivered her baby 2 days ago and during her , she noted this enlarging lesion on her right mid cheek. She denies any trauma. She denies any fever. She is currently . Today the patient underwent excision 1.5 cm pyogenic granuloma and incisional biopsy 3.5 cm congenital pigmented lesion right mid cheek with 2.5 cm layered closure. Estimated Blood Loss: 5 ml. Specimen's removed: Pyogenic granuloma and congenital pigmented lesion right mid cheek to Pathology. Drains: None. Type of Anesthesia:: Local MAC - xylocaine with epinephrine. - Admit VTE Documentation VTE Present on Admission: No VTE Mechan Device Prophylaxis: SCD's VTE Pharm Prophylaxis ordered?: No
--- NOTE | 2017-11-18 13:14 | OP.PN_ITS ---
Immediate Post-Op Note Date of Procedure: 11/18/17 Primary Surgeon/Physician: Jamie Hackett level vial inside grinder: None Pre-Operative Diagnosis: 1. 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 2. 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 3. Family history of skin cancer. 4. Recent baby delivery. 5. Patient is . Post-Operative Diagnosis: Same. Surgery/Procedure Performed:: Excision 1.5 cm pyogenic granuloma and incisional biopsy 3.5 cm congenital pigmented lesion right mid cheek with 2.5 cm layered closure. Description of Surgical Findings:: 22 year old woman presents with a bleeding lesion right mid cheek. She delivered her baby 2 days ago and during her , she noted this enlarging lesion on her right mid cheek. She denies any trauma. She denies any fever. She is currently . Today the patient underwent excision 1.5 cm pyogenic granuloma and incisional biopsy 3.5 cm congenital pigmented lesion right mid cheek with 2.5 cm layered closure. Estimated Blood Loss: 5 ml. Specimen's removed: Pyogenic granuloma and congenital pigmented lesion right mid cheek to Pathology. Drains: None. Type of Anesthesia:: Local MAC - xylocaine with epinephrine. - Admit VTE Documentation VTE Present on Admission: No VTE Mechan Device Prophylaxis: SCD's VTE Pharm Prophylaxis ordered?: No
[2017-11-18 13:15] VITALS: BP 118/73; BP 132/72; BP 93/72; PULSE 54; PULSE 72; RESP 16; TEMP 37.1; O2SAT 95; O2SAT 97
--- NOTE | 2017-11-18 13:18 | PCM.DC ---
You will use the following diet at home:: No restrictions Discharge Activity: May not drive while taking narcotic pain medications., May Shower - in 2 days. May shower in (days): 2 May resume sexual activity in: 4-6 weeks Ice area for (Minutes): 5 - as needed for facial swelling. Weight Bearing Status: Weight bearing as tolerated Lifting Restrictions: 20 lbs. Keep extremity elevated above heart level: - - elevate head. Call your doctor if your incision/area has: Continuous Slow Oozing, Sudden Increased Bleeding, Increased Pain/ Swelling, Increased Redness, Foul Smelling Discharge, Swelling at the incision site Call your doctor if you observe: Fever of 101 or Higher, Coldness, Increased Pain, Shortness of breath, Chest pain, Calf discomfort, Uncontrolled pain Suture Line Care: - - apply bactroban ointment to suture line daily. Cleanse incision/area with: - - may get incision wet in shower in two days. Allergies/Adverse Reactions: Allergies No Known Allergies Allergy (Verified 11/18/17 10:37) Medications to take at Discharge vitamin,calcium,nsymmgma-idai-omumw acid tablet 1 tab PO QDAY 05/19/17 Citalopram Hydrobromide [Citalopram HBr] 20 mg PO QDAY 11/07/17 Amox/Clavulanate Tablet [Augmentin Tablet] 875 mg PO BID #10 tab 11/18/17 Oxycodone HCl/Acetaminophen [Percocet 5/325] 1 tab PO 4X/DAY PRN PRN 4 Days #15 tab 11/18/17 The following prescriptions were given: Oxycodone HCl/Acetaminophen [Percocet 5/325] 1 tab PO 4X/DAY PRN PRN 4 Days #15 tab PRN Reason: Pain Amox/Clavulanate Tablet [Augmentin Tablet] 875 mg PO BID #10 tab Primary Care Physician: Dieter Flores MD [Primary Care Provider] - Please Follow Up With: Jamie Hackett MD When: one week. call [phone] for appt. Proposed Discharge Date: 11/18/17
[2017-11-18 13:20] VITALS: BP 118/73; BP 93/72; PULSE 59; RESP 16; O2SAT 96
--- NOTE | 2017-11-18 13:21 | DCINST_ITS ---
You will use the following diet at home:: No restrictions Discharge Activity: May not drive while taking narcotic pain medications., May Shower - in 2 days. May shower in (days): 2 May resume sexual activity in: 4-6 weeks Ice area for (Minutes): 5 - as needed for facial swelling. Weight Bearing Status: Weight bearing as tolerated Lifting Restrictions: 20 lbs. Keep extremity elevated above heart level: - - elevate head. Call your doctor if your incision/area has: Continuous Slow Oozing, Sudden Increased Bleeding, Increased Pain/ Swelling, Increased Redness, Foul Smelling Discharge, Swelling at the incision site Call your doctor if you observe: Fever of 101 or Higher, Coldness, Increased Pain, Shortness of breath, Chest pain, Calf discomfort, Uncontrolled pain Suture Line Care: - - apply bactroban ointment to suture line daily. Cleanse incision/area with: - - may get incision wet in shower in two days. Allergies/Adverse Reactions: Allergies No Known Allergies Allergy (Verified 11/18/17 10:37) Medications to take at Discharge vitamin,calcium,ndjekjrk-uerr-cmciz acid tablet 1 tab PO QDAY 05/19/17 Citalopram Hydrobromide [Citalopram HBr] 20 mg PO QDAY 11/07/17 Amox/Clavulanate Tablet [Augmentin Tablet] 875 mg PO BID #10 tab 11/18/17 Oxycodone HCl/Acetaminophen [Percocet 5/325] 1 tab PO 4X/DAY PRN PRN 4 Days #15 tab 11/18/17 The following prescriptions were given: Oxycodone HCl/Acetaminophen [Percocet 5/325] 1 tab PO 4X/DAY PRN PRN 4 Days #15 tab PRN Reason: Pain Amox/Clavulanate Tablet [Augmentin Tablet] 875 mg PO BID #10 tab Primary Care Physician: Dieter Flores MD [Primary Care Provider] - Please Follow Up With: Jamie Hackett MD When: one week. call [phone] for appt. Proposed Discharge Date: 11/18/17
[2017-11-18 13:25] VITALS: BP 130/90; BP 93/72; PULSE 72; RESP 16; O2SAT 99
[2017-11-18 13:30] VITALS: BP 150/97; BP 93/72; PULSE 73; RESP 16; TEMP 37.1; O2SAT 98
[2017-11-18 13:35] VITALS: BP 93/72
--- NOTE | 2017-11-18 19:27 | PCM.OPRPT ---
Report of Operation Date of Procedure: 11/18/17 Pre-Operative Diagnosis: 1. 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 2. 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 3. Family history of skin cancer. 4. Recent baby delivery. 5. Patient is . Post-Operative Diagnosis: Same. Surgery/Procedure Performed:: Excision 1.5 cm pyogenic granuloma and incisional biopsy 3.5 cm congenital pigmented lesion right mid cheek with 2.5 cm layered closure. Description of Surgical Findings:: 22 year old woman presents with a bleeding lesion right mid cheek. She delivered her baby 2 days ago and during her , she noted this enlarging lesion on her right mid cheek. She denies any trauma. She denies any fever. She is currently . Patient was informed of the risks and complications of the procedure including alternatives to surgery. These were discussed with the patient personally. Patient voices understanding and wishes to proceed. Some of the risks and complications were included in a form from the [employer]. medical office coordinator: None Type of Anesthesia:: Local MAC - xylocaine with epinephrine. Specimen's removed: Pyogenic granuloma and congenital pigmented lesion right mid cheek to Pathology. Drains: None. Estimated Blood Loss (mL): 5 ml. Description of Procedure: Patient was taken to OR in supine position and was given IV light sedation because of her recent delivery. Her face was prepped and draped in the usual fashion. SCD's were placed for DVT prophylaxis. Perioperative antibiotics were given intravenously. Her right cheek was infiltrated with xylocaine with epinephrine. After waiting 5 minutes for the anesthetic to take effect, the friable bleeding pyogenic granuloma was excised in an oblique elliptical fashion which included an incisional biopsy on the underlying congenital pigmented lesion. A suture was marked at the 12 oclock position for pathology orientation. The lesion was sent to Pathology for analysis to rule out carcinoma. If carcinoma is present, then further excision will be done with skin flap reconstruction. Hemostasis was obtained with electrocautery. The lesion was excised with a 1 mm margin in all directions making it a 1.7 cm excision with a 2.5 cm layered closure. The pyogenic granuloma was pedunculated thus making the base a little smaller than the rest of the lesion. The wound was then closed in multiple layered fashion with 5-0 Monocryl interrupted sutures for the deep dermis and subcutaneous tissue. The skin was approximated with 6-0 Prolene simple interrupted sutures. Steristrips were applied followed by antibiotic ointment. Patient tolerated the procedure well and was sent to PACU in satisfactory condition. She will be sent home on antibiotics and pain medication. She will keep her head elevated during the initial postop period. She will followup in the office in a week for a wound check as well as for discussion of her pathology report and for removal of the sutures. Based on the pathology report, the underlying congenital pigmented lesion may need to be excised. Grafts/Implants Used: None. - Complications None. - Admit VTE Documentation VTE Present on Admission: No VTE Mechan Device Prophylaxis: SCD's VTE Pharm Prophylaxis ordered?: No Code Visit Surgery Charges CPT - 76137 ICD-10 - L98.0, D49.2, Z80.8, Z39.1 51668 L98.0, D49.2, Z80.8, Z39.1
--- NOTE | 2017-11-19 23:27 | OP.PCM_ITS ---
Report of Operation Date of Procedure: 11/18/17 Pre-Operative Diagnosis: 1. 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 2. 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 3. Family history of skin cancer. 4. Recent baby delivery. 5. Patient is . Post-Operative Diagnosis: Same. Surgery/Procedure Performed:: Excision 1.5 cm pyogenic granuloma and incisional biopsy 3.5 cm congenital pigmented lesion right mid cheek with 2.5 cm layered closure. Description of Surgical Findings:: 22 year old woman presents with a bleeding lesion right mid cheek. She delivered her baby 2 days ago and during her , she noted this enlarging lesion on her right mid cheek. She denies any trauma. She denies any fever. She is currently . Patient was informed of the risks and complications of the procedure including alternatives to surgery. These were discussed with the patient personally. Patient voices understanding and wishes to proceed. Some of the risks and complications were included in a form from the [employer]. nurses' registry director: None Type of Anesthesia:: Local MAC - xylocaine with epinephrine. Specimen's removed: Pyogenic granuloma and congenital pigmented lesion right mid cheek to Pathology. Drains: None. Estimated Blood Loss (mL): 5 ml. Description of Procedure: Patient was taken to OR in supine position and was given IV light sedation because of her recent delivery. Her face was prepped and draped in the usual fashion. SCD's were placed for DVT prophylaxis. Perioperative antibiotics were given intravenously. Her right cheek was infiltrated with xylocaine with epinephrine. After waiting 5 minutes for the anesthetic to take effect, the friable bleeding pyogenic granuloma was excised in an oblique elliptical fashion which included an incisional biopsy on the underlying congenital pigmented lesion. A suture was marked at the 12 oclock position for pathology orientation. The lesion was sent to Pathology for analysis to rule out carcinoma. If carcinoma is present, then further excision will be done with skin flap reconstruction. Hemostasis was obtained with electrocautery. The lesion was excised with a 1 mm margin in all directions making it a 1.7 cm excision with a 2.5 cm layered closure. The pyogenic granuloma was pedunculated thus making the base a little smaller than the rest of the lesion. The wound was then closed in multiple layered fashion with 5-0 Monocryl interrupted sutures for the deep dermis and subcutaneous tissue. The skin was approximated with 6-0 Prolene simple interrupted sutures. Steristrips were applied followed by antibiotic ointment. Patient tolerated the procedure well and was sent to PACU in satisfactory condition. She will be sent home on antibiotics and pain medication. She will keep her head elevated during the initial postop period. She will followup in the office in a week for a wound check as well as for discussion of her pathology report and for removal of the sutures. Based on the pathology report , the underlying congenital pigmented lesion may need to be excised. Grafts/Implants Used: None. - Complications None. - Admit VTE Documentation VTE Present on Admission: No VTE Mechan Device Prophylaxis: SCD's VTE Pharm Prophylaxis ordered?: No Code Visit Surgery Charges CPT - 97416 ICD-10 - L98.0, D49.2, Z80.8, Z39.1 55610 L98.0, D49.2, Z80.8, Z39.1
== END 2017-11-18 13:53 | disposition home or self-care (01) ==
LOC: SDC 10:18 → AC 10:19
PROVIDERS: Family Provider Family Medicine; PCP Family Medicine; Visit Provider Surgery
PROC: (CPT 11442; principal; 2017-11-18 11:30)
DX: O90.89 Other complications of the puerperium, not elsewhere classified (principal); L98.0 Pyogenic granuloma; Z80.8 Family history of malignant neoplasm of other organs or systems
CPT/HCPCS: 11442; 12051; 88304; J7120; J0295

== ENCOUNTER 2018-06-30 11:03 | Day surgery (SDC) | payer MEDICAID, SELFPAY ==
[2018-04-27 14:30] VITALS: BMI 42.5
--- NOTE | 2018-06-29 23:59 | PCM.HP.BLA ---
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 Since the surgery, she has since delivered her child. She denies any fever. She denies any drainage from this hemangioma right cheek. It was discussed with her after her surgery that she may be a candidate for vascular laser treatments for this hemangioma. We sent a letter to her insurance carrier and received medical approval for the vascular laser treatments. PAST MEDICAL HISTORY back problems PAST SURGICAL HISTORY section spinal fusion tonsillectomy wisdom tooth extraction ALLERGIES No Known Allergies MEDICATIONS Citalopram Hydrobromide FAMILY HISTORY Uncle - Cancer, Non Hodgkin's lymphoma Grandmother - Heart disease Grandfather - Heart disease SOCIAL HISTORY Smoking Status: Never smoker alcohol intake: never substance use type: does not use caffeine: No REVIEW OF SYSTEMS General - Denies fever, fatigue, and weight loss. Eyes - Denies cataracts and glaucoma. ENT - Denies nasal congestion and sore throat. Endocrine - Denies excessive thirst and urination. Skin - Denies skin cancer. She has a hemangioma on her right cheek diagnosed from surgery in 11/07. Musculoskeletal - Denies joint pain, joint stiffness, weakness of muscles and joints, back pain, and arthritis. Neuro - Denies headaches. Cardiovascular - Denies chest pain, fatigue, and shortness of breath with exertion. Psych - Denies anxiety and depression. Respiratory - Denies chronic cough and shortness of breath. Gastrointestinal - Denies nausea, vomiting, diarrhea, and constipation. Hematologic - Denies abnormal bruising and bleeding. Genitourinary - Denies hematuria and urinary frequency. PHYSICAL EXAMINATION General - Alert and oriented. HEENT - PERRL. EOMI. Throat is clear. There is a 3.2 cm capillary hemangioma on her right cheek. Her incision has healed well. The hemangioma is nontender. No ulceration. Has irregular borders. No evidence of infection. Neck - Supple and non-tender. No cervical adenopathy. No suspicious lesions noted. Lungs- Clear to auscultation. Heart - Regular rate and rhythm. Abdomen - Soft and non distended. Extremities - FROM. No axillary adenopathy. Radial pulses are palpable. No suspicious lesions noted. Neuro - CN II-XII grossly intact. Psych - Normal mood and affect. ASSESSMENT 1. 3.2 cm capillary hemangioma right cheek. 2. Family history of skin cancer. 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 Due to its large size, she is at risk for developing problems with this hemangioma, namely, bleeding, infection and/or ulceration. She is a candidate for vascular laser treatments to treat and destroy this cutaneous vascular proliferative lesion. Usually 2-6 vascular treatments are necessary that are spaced 6-8 weeks apart. We sent a letter to her insurance carrier and received medical approval for the vascular laser treatments. This is vascular laser treatment #1. The vascular laser treatments would take place at the hospital on an outpatient basis under local anesthesia and IV sedation. Afterwards, she would be sent home on antibiotics. She would also apply antibiotic ointment to the area daily. Patient was informed of the risks and complications of the procedure including alternatives to surgery. These were discussed with the patient personally. Patient voices understanding and wishes to proceed. Some of the risks and complications were included in a form from the [employer].
[2018-06-30] VITALS (7 sets, daily range): BP systolic 119–135; BP diastolic 66–84; PULSE 83–100; RESP 16–18; TEMP 37.2–37.8; O2SAT 100; BMI 43.1
[2018-06-30 11:24] LABS: Internal QC Validated? YES +Cl - CLEAR BKGD
[2018-06-30 11:25] LABS: Pregnancy, Urine Negative Negative
[2018-06-30] MEDS: Mupirocin Ointment 22gm Tube 1 APPLIC (13:00)
--- NOTE | 2018-06-30 13:10 | PCM.IMDPSTOP ---
Immediate Post-Op Note Date of Procedure: 06/30/18 Primary Surgeon/Physician: Jamie Hackett MD occupational health coordinator: None Pre-Operative Diagnosis: 1. 3.2 cm capillary hemangioma right cheek. 2. Family history of skin cancer. Post-Operative Diagnosis: Same. 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 Since the surgery, she has since delivered her child. She denies any fever. She denies any drainage from this hemangioma right cheek. It was discussed with her after her surgery that she may be a candidate for vascular laser treatments for this hemangioma. Today the patient underwent destruction 3.2 cm cutaneous vascular proliferative hemangioma lesion right cheek using vascular laser technique (10.24 cm2). This is her first vascular laser treatment. I used a [employer] V-Beam Perfecta 53 vascular laser. Power/Fluence - 8 J/cm2. Density/Width - 1.5 ms. Spot Size - 7 mm. DCD - 30/20. Total Pulses - 93. Estimated Blood Loss: None. Specimen's removed: None. Drains: None. Type of Anesthesia:: Local MAC - xylocaine with epinephrine and IV sedation. - Admit VTE Documentation VTE Present on Admission: No VTE Mechan Device Prophylaxis: SCD's VTE Pharm Prophylaxis ordered?: No
--- NOTE | 2018-06-30 13:15 | DCINST_ITS ---
You will use the following diet at home:: No restrictions Discharge Activity: May Shower - tomorrow., - - elevate head. May shower in (days): 1 May resume sexual activity in: No Restrictions Ice area for (Minutes): 5 - as needed for facial swelling. Weight Bearing Status: Weight bearing as tolerated Keep extremity elevated above heart level: - - elevate head. Call your doctor if your incision/area has: Continuous Slow Oozing, Sudden Increased Bleeding, Increased Pain/ Swelling, Increased Redness, Foul Smelling Discharge, Swelling at the incision site Call your doctor if you observe: Fever of 101 or Higher, Coldness, Increased Pain, Shortness of breath, Chest pain, Calf discomfort, Uncontrolled pain Suture Line Care: - - apply antibiotic ointment to right cheek wound daily. Cleanse incision/area with: - - may get wound wet in the shower tomorrow. Allergies/Adverse Reactions: Allergies No Known Allergies Allergy (Verified 06/30/18 11:24) Medications to take at Discharge Clindamycin HCl [Cleocin] 300 mg PO TID #9 cap 06/30/18 The following prescriptions were given: Clindamycin HCl [Cleocin] 300 mg PO TID #9 cap Primary Care Physician: Iqra Fallon MD [Primary Care Provider] - Test Results: Test results from this visit will be discussed in further detail at your follow- up appointment, if applicable. Please Follow Up With: Jamie Hackett MD When: one week. call [phone] for appt. Proposed Discharge Date: 06/30/18
--- NOTE | 2018-06-30 15:36 | OP.PCM_ITS ---
Report of Operation Date of Procedure: 06/30/18 Pre-Operative Diagnosis: 1. 3.2 cm capillary hemangioma right cheek. 2. Family history of skin cancer. Post-Operative Diagnosis: Same. 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 Since the surgery, she has since delivered her child. She denies any fever. She denies any drainage from this hemangioma right cheek. It was discussed with her after her surgery that she may be a candidate for vascular laser treatments for this hemangioma. This is her first vascular laser treatment. Patient was informed of the risks and complications of the procedure including alternatives to surgery. These were discussed with the patient personally. Patient voices understanding and wishes to proceed. Some of the risks and complications were included in a form from the [employer]. I used a [employer] V-Beam Perfecta 53 vascular laser. Power/Fluence - 8 J/cm2. Density/Width - 1.5 ms. Spot Size - 7 mm. DCD - 30/20. Total Pulses - 93. trim operator: None Type of Anesthesia:: Local MAC - xylocaine with epinephrine and IV sedation. Specimen's removed: None. Drains: None. Estimated Blood Loss (mL): None. Description of Procedure: Patient was taken to OR in supine position and was given IV sedation. The right cheek was prepped and draped in the usual fashion. SCD's were placed for DVT prophylaxis. Perioperative antibiotics were given intravenously. The towel drapes were saturated with saline. The right cheek was infiltrated with xylocaine and epinephrine. After waiting 5 minutes for the anesthetic to take effect, I started the vascular laser procedure. Initially, I made sure everybody in the operating room had proper laser protective eyewear on. I washed off the Betadine prep with saline prior to using the laser. I used the [employer] V-Beam Perfecta 53 vascular laser. This is the patient's first vascular laser treatment. The settings were Power/Fluence of 8 J/cm2, Density/Width of 1.5 ms, Spot Size of 7 mm, DCD of 30/20, and Total Pulses were 93. Good ecchymotic response was seen. Antibiotic ointment was applied to the hemangioma wound. The size of the hemangioma that was treated with the vascular laser was 3.2 x 3.2 cm or 10.24 cm2. Patient tolerated the procedure well and was sent to PACU in satisfactory condition. Patient will be sent home on antibiotics for a few days. She will use Tylenol or Ibuprofen for pain control. She will apply antibiotic ointment to the hemangioma wound daily. She will keep her head elevated during the initial postop period. Patient will followup in a week for a wound check. Will see how well the response is over the next few weeks and then determine the timing of vascular laser treatment #2 in about 6-8 weeks. Grafts/Implants Used: None. - Complications None. - Admit VTE Documentation VTE Present on Admission: No VTE Mechan Device Prophylaxis: SCD's VTE Pharm Prophylaxis ordered?: No Code Visit Surgery Charges CPT - 67590 ICD-10 - D18.01
== END 2018-06-30 14:47 | disposition home or self-care (01) ==
LOC: SDC 11:04 → AC 11:06
PROVIDERS: Anesthesiology; Family Provider Internal Medicine; PCP Internal Medicine; Referring Provider Surgery; Visit Provider Surgery
PROC: (CPT 17107; principal; 2018-06-30 12:15)
DX: D18.01 Hemangioma of skin and subcutaneous tissue (principal); K21.9 Gastro-esophageal reflux disease without esophagitis; Z80.8 Family history of malignant neoplasm of other organs or systems
CPT/HCPCS: 00300; 17107; 81025; J7120; J2405

== ENCOUNTER → 2018-07-12 13:29 | Outpatient (CLI) | payer MEDICAID, SELFPAY ==
[2018-07-12 11:12] VITALS: BMI 43.1
== END ==
PROVIDERS: Family Provider Internal Medicine; PCP Internal Medicine; Referring Provider Nurse Practitioner Women's Health; Visit Provider Nurse Practitioner Women's Health
DX: R10.2 Pelvic and perineal pain (principal); R30.0 Dysuria
CPT/HCPCS: 87070; 87086; 87088; 87186; 87205

== ENCOUNTER 2018-09-08 07:58 | Day surgery (SDC) | payer MEDICAID, SELFPAY ==
[2018-07-27 15:21] VITALS: BMI 43.1
[2018-09-01 16:16] VITALS: BMI 43.1
[2018-09-08] VITALS (7 sets, daily range): BP systolic 107–131; BP diastolic 63–86; PULSE 77–95; RESP 14–18; TEMP 36.3–37.3; O2SAT 92–98; BMI 40.6
--- NOTE | 2018-09-08 00:16 | HP.PCM_ITS ---
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 Since the surgery, she has since delivered her child. She denies any fever. She denies any drainage from this hemangioma right cheek. It was discussed with her after her surgery that she may be a candidate for vascular laser treatments for this hemangioma. She underwent her first vascular laser treatment on 06/30/18 where she underwent destruction 3.2 cm cutaneous vascular proliferative hemangioma lesion right cheek using vascular laser technique (10.24 cm2). She presents today for her second vascular laser treatment. PAST MEDICAL HISTORY back problems capillary hemangioma right cheek PAST SURGICAL HISTORY section spinal fusion tonsillectomy wisdom tooth extraction Destruction 3.2 cm cutaneous vascular proliferative hemangioma lesion right cheek using vascular laser technique (10.24 cm2) - 06/30/18 ALLERGIES No Known Allergies MEDICATIONS Citalopram Hydrobromide FAMILY HISTORY Uncle - Cancer, Non Hodgkin's lymphoma Grandmother - Heart disease Grandfather - Heart disease SOCIAL HISTORY Smoking Status: Never smoker alcohol intake: never substance use type: does not use caffeine: No REVIEW OF SYSTEMS General - Denies fever, fatigue, and weight loss. Eyes - Denies cataracts and glaucoma. ENT - Denies nasal congestion and sore throat. Endocrine - Denies excessive thirst and urination. Skin - Denies skin cancer. She has a hemangioma on her right cheek diagnosed from surgery in 11/07. Musculoskeletal - Denies joint pain, joint stiffness, weakness of muscles and joints, back pain, and arthritis. Neuro - Denies headaches. Cardiovascular - Denies chest pain, fatigue, and shortness of breath with exertion. Psych - Denies anxiety and depression. Respiratory - Denies chronic cough and shortness of breath. Gastrointestinal - Denies nausea, vomiting, diarrhea, and constipation. Hematologic - Denies abnormal bruising and bleeding. Genitourinary - Denies hematuria and urinary frequency. PHYSICAL EXAMINATION General - Alert and oriented. HEENT - PERRL. EOMI. Throat is clear. There is a 3.2 cm capillary hemangioma on her right cheek. Her incision has healed well. The hemangioma is nontender. No ulceration. Has irregular borders. No evidence of infection. It is less red than it has been since her first vascular laser treatment on 06/30/18. Neck - Supple and non-tender. No cervical adenopathy. No suspicious lesions noted. Lungs- Clear to auscultation. Heart - Regular rate and rhythm. Abdomen - Soft and non distended. Extremities - FROM. No axillary adenopathy. Radial pulses are palpable. No suspicious lesions noted. Neuro - CN II-XII grossly intact. Psych - Normal mood and affect. ASSESSMENT 1. 3.2 cm capillary hemangioma right cheek. 2. Family history of skin cancer. 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 Due to its large size, she is at risk for developing problems with this hemangioma, namely, bleeding, infection and/or ulceration. She is a candidate for vascular laser treatments to treat and destroy this cutaneous vascular proliferative lesion. Usually 2-6 vascular treatments are necessary that are spaced 6-8 weeks apart. We sent a letter to her insurance carrier and received medical approval for the vascular laser treatments. She had her first vascular laser treatment on 06/30/18. She had a good response as the coloration has lessened. She presents today for her second vascular laser treatment. The vascular laser treatments would take place at the hospital on an outpatient basis under local anesthesia and IV sedation. Afterwards, she would be sent home on antibiotics. She would also apply antibiotic ointment to the area daily. Patient was informed of the risks and complications of the procedure including alternatives to surgery. These were discussed with the patient personally. Patient voices understanding and wishes to proceed. Some of the risks and complications were included in a form from the [employer] [employer].
[2018-09-08 08:24] LABS: Internal QC Validated? YES +Cl - CLEAR BKGD; Pregnancy, Urine Negative Negative
[2018-09-08] MEDS: Mupirocin Ointment 22gm Tube 1 APPLIC (10:45)
--- NOTE | 2018-09-08 10:52 | PCM.OPRPT ---
Report of Operation Date of Procedure: 09/08/18 Pre-Operative Diagnosis: 1. 3.2 cm capillary hemangioma right cheek. 2. Family history of skin cancer. Post-Operative Diagnosis: Same. 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 Since the surgery, she has since delivered her child. She denies any fever. She denies any drainage from this hemangioma right cheek. It was discussed with her after her surgery that she may be a candidate for vascular laser treatments for this hemangioma. She underwent her first vascular laser treatment on 06/30/18 where she underwent destruction 3.2 cm cutaneous vascular proliferative hemangioma lesion right cheek using vascular laser technique (10.24 cm2). Healing has been uneventful. She presents today for her 2nd vascular laser treatment. Patient was informed of the risks and complications of the procedure including alternatives to surgery. These were discussed with the patient personally. Patient voices understanding and wishes to proceed. Some of the risks and complications were included in a form from the [employer]. I used a [employer] V-Beam Perfecta 53 vascular laser. Power/Fluence - 8 J/cm2. Density/Width - 1.5 ms. Spot Size - 7 mm. DCD - 30/20. Total Pulses - 122. manager mechanical: None Type of Anesthesia:: Local MAC - xylocaine with epinephrine and IV sedation. Specimen's removed: None. Drains: None. Estimated Blood Loss (mL): 1 ml. Description of Procedure: Patient was taken to OR in supine position and was given IV sedation. The right cheek was prepped and draped in the usual fashion. SCD's were placed for DVT prophylaxis. Perioperative antibiotics were given intravenously. The towel drapes were saturated with saline. The right cheek was infiltrated with xylocaine and epinephrine. After waiting 5 minutes for the anesthetic to take effect, I started the vascular laser procedure. Initially, I made sure everybody in the operating room had proper laser protective eyewear on. I washed off the Betadine prep with saline prior to using the laser. I used the [employer] V-Beam Perfecta 53 vascular laser. This is the patient's 2nd vascular laser treatment. The settings were Power/Fluence of 8 J/cm2, Density/Width of 1.5 ms, Spot Size of 7 mm, DCD of 30/20, and Total Pulses were 122. Good ecchymotic response was seen. Antibiotic ointment was applied to the hemangioma wound. The size of the hemangioma that was treated with the vascular laser was 3.2 x 3.2 cm or 10.24 cm2. Patient tolerated the procedure well and was sent to PACU in satisfactory condition. Patient has Bactrim at home from a toe infection and will continue them. She will use Tylenol or Ibuprofen for pain control. She will apply antibiotic ointment to the hemangioma wound daily. She will keep her head elevated during the initial postop period. Patient will followup in a week for a wound check. Will see how well the response is over the next few weeks and then determine the timing of vascular laser treatment #3 in about 6-8 weeks. Grafts/Implants Used: None. - Complications None. - Admit VTE Documentation VTE Present on Admission: No VTE Mechan Device Prophylaxis: SCD's VTE Pharm Prophylaxis ordered?: No Code Visit Surgery Charges CPT - 68331 ICD-10 - D18.01
--- NOTE | 2018-09-08 11:02 | DCINST_ITS ---
You will use the following diet at home:: No restrictions Discharge Activity: May Shower - in one day., - - keep head elevated. May shower in (days): 1 May resume sexual activity in: No Restrictions Ice area for (Minutes): 5 - as needed for facial swelling. Weight Bearing Status: Weight bearing as tolerated Keep extremity elevated above heart level: - - elevate head. Call your doctor if your incision/area has: Continuous Slow Oozing, Sudden Increased Bleeding, Increased Pain/ Swelling, Increased Redness, Foul Smelling Discharge, Swelling at the incision site Call your doctor if you observe: Fever of 101 or Higher, Coldness, Increased Pain, Shortness of breath, Chest pain, Calf discomfort, Uncontrolled pain Suture Line Care: - - apply antibiotic ointment to wound daily. Cleanse incision/area with: - - may get wound wet in the shower tomorrow. Additional Instructions: Patient has Bactrim at home for a toe infection and will continue them. Patient will use Tylenol or Ibuprofen for pain. Allergies/Adverse Reactions: Allergies No Known Allergies Allergy (Verified 09/01/18 16:16) Medications to take at Discharge Sulfamethoxazole/Trimethoprim [Bactrim 400-80 mg Tablet] 2 each PO BID 09/08/18 Primary Care Physician: Iqra Fallon MD [Primary Care Provider] - Test Results: Test results from this visit will be discussed in further detail at your follow- up appointment, if applicable. Please Follow Up With: Jamie Hackett MD When: one week. call [phone] for appt. Proposed Discharge Date: 09/08/18
== END 2018-09-08 11:50 | disposition home or self-care (01) ==
LOC: SDC 07:59 → AC 08:00
PROVIDERS: Anesthesiology; Family Provider Internal Medicine; PCP Internal Medicine; Referring Provider Surgery; Visit Provider Surgery
PROC: (CPT 17107; principal; 2018-09-08 09:15)
DX: D18.09 Hemangioma of other sites (principal); Z80.8 Family history of malignant neoplasm of other organs or systems; K21.9 Gastro-esophageal reflux disease without esophagitis; I10 Essential (primary) hypertension
CPT/HCPCS: 17107; 81025; J7120; J2405

== ENCOUNTER 2018-12-26 10:01 | Day surgery (SDC) | payer MEDICAID, SELFPAY ==
[2018-09-08 08:20] VITALS: BMI 40.6
[2018-11-30 13:08] VITALS: BMI 40.6
[2018-12-26 10:18] VITALS: BP 142/72; PULSE 72; RESP 16; TEMP 37.1; O2SAT 100; BMI 40.2
[2018-12-26 10:27] LABS: Internal QC Validated? YES +Cl - CLEAR BKGD; Pregnancy, Urine Negative Negative
--- NOTE | 2018-12-26 12:31 | HP.PCM_ITS ---
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 Since the surgery, she has since delivered her child. She denies any fever. She denies any drainage from this hemangioma right cheek. It was discussed with her after her surgery that she may be a candidate for vascular laser treatments for this hemangioma. 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 She presents today for her third vascular laser treatment. 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 Eyes - Denies cataracts and glaucoma. ENT - Denies nasal congestion and sore throat. Endocrine - Denies excessive thirst and urination. Skin - Denies skin cancer. She has a hemangioma on her right cheek diagnosed from surgery in 11/07. Musculoskeletal - Denies joint pain, joint stiffness, weakness of muscles and joints, back pain, and arthritis. Neuro - Denies headaches. Cardiovascular - Denies chest pain, fatigue, and shortness of breath with exertion. Psych - Denies anxiety and depression. Respiratory - Denies chronic cough and shortness of breath. Gastrointestinal - Denies nausea, vomiting, diarrhea, and constipation. Hematologic - Denies abnormal bruising and bleeding. Genitourinary - Denies hematuria and urinary frequency. PHYSICAL EXAMINATION General - Alert and oriented. HEENT - PERRL. EOMI. Throat is clear. There is a 3.2 cm capillary hemangioma on her right cheek. Her incision has healed well. The hemangioma is nontender. No ulceration. Has irregular borders. No evidence of infection. It is less red than it has been since her first vascular laser treatment on 06/30/18. Neck - Supple and non-tender. No cervical adenopathy. No suspicious lesions noted. Lungs- Clear to auscultation. Heart - Regular rate and rhythm. Abdomen - Soft and non distended. Extremities - FROM. No axillary adenopathy. Radial pulses are palpable. No suspicious lesions noted. Neuro - CN II-XII grossly intact. Psych - Normal mood and affect. ASSESSMENT 1. 3.2 cm capillary hemangioma right cheek. 2. Family history of skin cancer. 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 Due to its large size, she is at risk for developing problems with this hemangioma, namely, bleeding, infection and/or ulceration. She is a candidate for vascular laser treatments to treat and destroy this cutaneous vascular proliferative lesion. Usually 2-6 vascular treatments are necessary that are spaced 6-8 weeks apart. We sent a letter to her insurance carrier and received medical approval for the vascular laser treatments. She had her first vascular laser treatment on 06/30/18 and her second vascular laser treatment on 09/08/18. She had a good response as the coloration has lessened. She presents today for her third vascular laser treatment. The vascular laser treatments would take place at the hospital on an outpatient basis under local anesthesia and IV sedation. Afterwards, she would be sent home on antibiotics. She would also apply antibiotic ointment to the area daily. Patient was informed of the risks and complications of the procedure including alternatives to surgery. These were discussed with the patient personally. Patient voices understanding and wishes to proceed. Some of the risks and complications were included in a form from the [employer].
[2018-12-26] MEDS: Mupirocin Ointment 22gm Tube 1 APPLIC (13:10)
--- NOTE | 2018-12-26 13:16 | OP.PCM_ITS ---
Report of Operation Date of Procedure: 12/26/18 Pre-Operative Diagnosis: 1. 3.2 cm capillary hemangioma right cheek. 2. Family history of skin cancer. Post-Operative Diagnosis: Same. 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 Since the surgery, she has since delivered her child. She denies any fever. She denies any drainage from this hemangioma right cheek. It was discussed with her after her surgery that she may be a candidate for vascular laser treatments for this hemangioma. 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 She presents today for her 3rd vascular laser treatment. Patient was informed of the risks and complications of the procedure including alternatives to surgery. These were discussed with the patient personally. Patient voices understanding and wishes to proceed. Some of the risks and complications were included in a form from the [employer]. I used a [employer] V-Beam Perfecta 53 vascular laser. Power/Fluence - 8 J/cm2. Density/Width - 1.5 ms. Spot Size - 7 mm. DCD - 30/20. Total Pulses - 204. soa engineer: None Type of Anesthesia:: Local MAC - xylocaine with epinephrine and IV sedation. Specimen's removed: None. Drains: None. Estimated Blood Loss (mL): 1 ml. Description of Procedure: Patient was taken to OR in supine position and was given IV sedation. The right cheek was prepped and draped in the usual fashion. SCD's were placed for DVT prophylaxis. Perioperative antibiotics were given intravenously. The towel drapes were saturated with saline. The right cheek was infiltrated with xylocaine and epinephrine. After waiting 5 minutes for the anesthetic to take effect, I started the vascular laser procedure. Initially, I made sure everybody in the operating room had proper laser protective eyewear on. I washed off the Betadine prep with saline prior to using the laser. I used the [employer] V-Beam Perfecta 53 vascular laser. This is the patient's 3rd vascular laser treatment. The settings were Power/Fluence of 8 J/cm2, Density/Width of 1.5 ms, Spot Size of 7 mm, DCD of 30/20, and Total Pulses were 204. Good ecchymotic response was seen. Antibiotic ointment was applied to the hemangioma wound. The size of the hemangioma that was treated with the vascular laser was 3.2 x 3.2 cm or 10.24 cm2. Patient tolerated the procedure well and was sent to PACU in satisfactory condition. Patient has Bactrim at home from a toe infection and will continue them. She will use Tylenol or Ibuprofen for pain control. She will apply antibiotic ointment to the hemangioma wound daily. She will keep her head elevated during the initial postop period. Patient will followup in a week for a wound check. Will see how well the response is over the next few weeks and then determine the timing of vascular laser treatment #4 in about 6-8 weeks. Grafts/Implants Used: None. - Complications None. - Admit VTE Documentation VTE Present on Admission: No VTE Mechan Device Prophylaxis: SCD's VTE Pharm Prophylaxis ordered?: No Code Visit Surgery Charges CPT - 60973 ICD-10 - D18.01
--- NOTE | 2018-12-26 13:18 | DCINST_ITS ---
You will use the following diet at home:: No restrictions Discharge Activity: May Shower - in one day, - - keep head elevated. May shower in (days): 1 May resume sexual activity in: No Restrictions Ice area for (Minutes): 5 - as needed for facial swelling. Weight Bearing Status: Weight bearing as tolerated Keep extremity elevated above heart level: - - elevate head Call your doctor if your incision/area has: Continuous Slow Oozing, Sudden Increased Bleeding, Increased Pain/ Swelling, Increased Redness, Foul Smelling Discharge, Swelling at the incision site Call your doctor if you observe: Fever of 101 or Higher, Coldness, Increased Pain, Shortness of breath, Chest pain, Calf discomfort, Uncontrolled pain Suture Line Care: - - apply antibiotic ointment to wound daily. Cleanse incision/area with: - - may get wound wet in the shower tomorrow. Additional Instructions: Patient will use Tylenol or Ibuprofen for pain. Allergies/Adverse Reactions: Allergies No Known Allergies Allergy (Verified 12/26/18 10:13) Medications to take at Discharge Clindamycin HCl [Cleocin] 300 mg PO TID #9 cap 12/26/18 The following prescriptions were given: Clindamycin HCl [Cleocin] 300 mg PO TID #9 cap Prescription Printed Primary Care Physician: Iqra Fallon MD [Primary Care Provider] - Test Results: Test results from this visit will be discussed in further detail at your follow- up appointment, if applicable. Please Follow Up With: Jamie Hackett MD When: 1-2 weeks. call [phone] for appt. Proposed Discharge Date: 12/26/18
[2018-12-26 13:25] VITALS: BP 138/53; BP 142/72; PULSE 86; RESP 14; TEMP 36.5; O2SAT 98
[2018-12-26 13:30] VITALS: BP 142/72; BP 86/75; PULSE 73; RESP 14; O2SAT 97
[2018-12-26 13:35] VITALS: BP 116/79; BP 142/72; PULSE 79; RESP 14; O2SAT 99
[2018-12-26 13:38] VITALS: BP 137/74; BP 142/72; PULSE 80; RESP 14; TEMP 36.5; O2SAT 99
[2018-12-26 14:13] VITALS: BP 142/72
== END 2018-12-26 14:15 | disposition home or self-care (01) ==
LOC: SDC 10:02 → AC 10:03
PROVIDERS: Anesthesiology; Family Provider Internal Medicine; PCP Internal Medicine; Referring Provider Surgery; Visit Provider Surgery
PROC: (CPT 17106; principal; 2018-12-26 11:25)
DX: D18.01 Hemangioma of skin and subcutaneous tissue (principal); Z98.890 Other specified postprocedural states; Z80.8 Family history of malignant neoplasm of other organs or systems
CPT/HCPCS: 00300; 17106; 81025; J7120

== ENCOUNTER → 2020-01-16 11:34 | Outpatient (CLI) | payer MEDICAID, SELFPAY ==
[2020-01-16 10:42] VITALS: BMI 40.2
[2020-01-16 12:10] LABS: Absolute Lymphocyte Count 2.28 X10^3/uL (0.83-4.51); Absolute Neutrophil Count 4.2 X10^3/uL (2.0-7.7); Basophil# 0.04 X10^3/uL; Basophil% 0.5 % (0-1); Eosinophil# 0.29 X10^3/uL; Hematocrit 41.4 % (37-47); Hemoglobin 13.1 g/dL (12.0-15.0); Lymphocyte # 2.28 X10^3/ul (4.0); Lymphocyte % 31.1 % (19-41); Mean Corp Hgb Conc 31.6 g/dL (32-36); Mean Corpuscular Volume 91.6 fL (81-99); Mean Platelet Vol. 11.3 fl (6.2-12.0); Monocyte# 0.54 X10^3/uL; Monocyte% 7.4 % (0-10); NRBC Flagged by Analyzer 0 % (0-5); Neutrophil # 4.15 X10^3/uL (2.7-7.7); Neutrophil % 56.7 % (47-70); Platelet Count 266 K/mm3 (150-450); RBC Distribution Width CV 12.8 % (11.6-14.6); Red Blood Count 4.52 M/mm3 (4.2-5.4); White Blood Count 7.3 K/mm3 (4.4-11.0)
[2020-01-16 12:21] LABS: Vitamin D,25 Hydroxy 35.7 ng/mL
[2020-01-16 12:28] LABS: Cholesterol 125 mg/dL (200); Glucose 90 mg/dL (74-106); High Density Lipoprotein 47 mg/dL; Thyroid Stim Hormone (TSH) 2.13 uIU/mL (0.358-3.74); Triglycerides 86 mg/dL; Very Low Density Lipoprotein 17 mg/dL (5-40)
[2020-01-23 04:31] LABS: HPV Reflexed? NOT INDICATED
== END ==
PROVIDERS: PCP Internal Medicine; Referring Provider Obstetrics & Gynecology; Visit Provider Obstetrics & Gynecology
DX: Z13.0 Encounter for screening for diseases of the blood and blood-forming organs and certain disorders involving the immune mechanism (principal); Z13.220 Encounter for screening for lipoid disorders; Z13.29 Encounter for screening for other suspected endocrine disorder; Z12.4 Encounter for screening for malignant neoplasm of cervix
CPT/HCPCS: 36415; 80061; 82306; 82947; 84443; 85025; 88175; G0145

== ENCOUNTER → 2020-08-26 | Outpatient (CLI) | payer MEDICAID, SELFPAY ==
[2020-06-26 14:36] VITALS: BMI 40.5
--- NOTE | 2020-08-26 14:00 | LES_PTH ---
PATIENT: ANEL MILLARD LOC: [facility] U#:[id number] AGE/SX: 24/F ROOM: RE08/26/[address]: Dr. Jamie Hackett MD : 1995 BED: DIS: 08/26/2020 SPEC #: [id number] RECD: 08/26/20 14:12 STATUS: CARMELLA REQ #: [id number] ISMAEL: 08/26/20 14:[address]: Jamie Hackett DEPT: SURGICAL PATHOLOGY RECD BY: Iris Vazquez ENTERED: 08/27/20 08:37 SP TYPE: Lesion OTHR DR: Dr. Iqra Fallon MD Tissues: A - Skin of face, NOS B - Skin of face, NOS Procedures: Surgery Specimen Level IV HEADER OPERATION: Intradermal excision PRE-OP DIAGNOSIS: Enlarging lesions; family history of skin CA TISSUE SUBMITTED: A - Right medial cheek near nasolabial fold, B - Left chin at labiomental crease MICROSCOPIC DIAGNOSIS A. Right medial cheek near nasolabial fold lesion, shave biopsy: Intradermal nevus. B. Left chin at labiomental crease lesion, shave biopsy: Intradermal nevus. JONG:shirin 08/28/2020 MICROSCOPIC DESCRIPTION Slides are reviewed. GROSS DESCRIPTION A - Received in fixative is one container labeled with the patient's name and designated right medial cheek. The specimen consists of a piece of phipps-white skin measuring 0.4 x 0.4 x 0.1 cm. The entire specimen is submitted in one cassette. B - Received in fixative is one container labeled with the patient's name and designated left chin. The specimen consists of a piece of phipps-white skin measuring 0.3 x 0.3 x 0.1 cm. The entire specimen is submitted in one cassette. / JONG:shirin 08/27/20 TC:1 CPT: 03127 x2
== END | disposition home or self-care (01) ==
LOC: LABSPEC 14:17
PROVIDERS: PCP Internal Medicine; Visit Provider Surgery
DX: D23.39 Other benign neoplasm of skin of other parts of face (principal)
CPT/HCPCS: 88305

== ENCOUNTER → 2020-08-29 12:11 | Outpatient (CLI) | payer MEDICAID, SELFPAY ==
[2020-08-29 08:12] VITALS: BMI 39.8
== END ==
PROVIDERS: PCP Internal Medicine; Referring Provider Obstetrics & Gynecology; Visit Provider Obstetrics & Gynecology
DX: N76.0 Acute vaginitis (principal)
CPT/HCPCS: 87070; 87205

== ENCOUNTER → 2021-02-02 13:54 | Outpatient (CLI) | payer MEDICAID, SELFPAY ==
[2021-02-02 15:00] LABS: Absolute Lymphocyte Count 2.46 X10^3/uL (0.83-4.51); Basophil# 0.06 X10^3/uL; Basophil% 0.5 % (0-1); Eosinophil# 0.21 X10^3/uL; Eosinophils% 1.8 % (0-5); Hematocrit 41.5 % (37-47); Hemoglobin 13.3 g/dL (12.0-15.0); Lymphocyte # 2.46 X10^3/ul (0.83-4.51); Lymphocyte % 21.3 % (19-41); Mean Corpuscular Hgb 29.8 pg (27.0-32.0); Mean Corpuscular Volume 92.8 fL (81-99); Mean Platelet Vol. 11.4 fl (6.2-12.0); Monocyte# 0.82 X10^3/uL; Monocyte% 7.1 % (0-10); NRBC Flagged by Analyzer 0 % (0-5); Neutrophil # 7.96 X10^3/uL (2.7-7.7); Neutrophil % 68.9 % (47-70); Platelet Count 287 K/mm3 (150-450); RBC Distribution Width CV 12.7 % (11.6-14.6); RBC Distribution Width SD 43.8 fl (35.1-43.9); Red Blood Count 4.47 M/mm3 (4.2-5.4); White Blood Count 11.6 K/mm3 (4.4-11.0)
[2021-02-02 15:23] LABS: Vitamin D,25 Hydroxy 32.4 ng/mL
[2021-02-02 15:34] LABS: ALB/GLOB Ratio 0.9 RATIO (0.9-2.4); AST(SGOT) 18 U/L (15-37); Alanine Aminotransfer ALT/SGPT 28 U/L (13-56); Albumin, Serum 3.9 g/dL (3.2-5.0); Alkaline Phosphatase 61 U/L (45-117); Anion Gap 8 (5-15); BUN 14 mg/dL (7-18); BUN/Creat Ratio 20.5 RATIO (10-20); Calcium,Total 9.3 mg/dL (8.5-10.1); Chloride 105 mmol/L (98-107); Cholesterol 133 mg/dL (200); Creatinine, Serum 0.68 mg/dL (0.55-1.02); EST Glomerular Filtration Rate 110 mL/min (>60); Est Glom Filt Rate - Afr Amer 134 mL/min (>60); Globulin 4.2 g/dL (2.2-4.2); Glucose 87 mg/dL (74-106); High Density Lipoprotein 57 mg/dL; Protein, Total 8.1 g/dL (6.4-8.2); Sodium Level 139 mmol/L (136-145); Triglycerides 83 mg/dL; Very Low Density Lipoprotein 17 mg/dL (5-40)
== END ==
PROVIDERS: PCP Obstetrics & Gynecology; Visit Provider Internal Medicine
DX: Z00.00 Encounter for general adult medical examination without abnormal findings (principal); N93.9 Abnormal uterine and vaginal bleeding, unspecified; E66.01 Morbid (severe) obesity due to excess calories
CPT/HCPCS: 36415; 80053; 80061; 82306; 85025

== ENCOUNTER 2021-03-10 13:30 | Outpatient (RCR) | payer MEDICAID, SELFPAY | END 2021-03-22 23:59 | LOC: NS 13:30 | PROVIDERS: PCP Internal Medicine; Visit Provider Internal Medicine | DX: Z71.3 Dietary counseling and surveillance (principal); E66.01 Morbid (severe) obesity due to excess calories; Z68.41 Body mass index [BMI] 40.0-44.9, adult | CPT/HCPCS: 97802; 97803 ==

== ENCOUNTER 2021-06-09 17:02 | Outpatient (CLI) | payer MEDICAID, SELFPAY ==
--- NOTE | 2021-06-09 | LES_PTH ---
PATIENT: ANEL MILLARD LOC: [facility] U#:[id number] AGE/SX: 25/F ROOM: RE06/09/[address]: Dr. Jamie Hackett MD : 1995 BED: DIS: 06/09/2021 SPEC #: [id number] RECD: 06/09/21 16:28 STATUS: CARMELLA SHANNAN #: [id number] ISMAEL: 06/09/21 00:[address]: Jamie Hackett DEPT: SURGICAL PATHOLOGY RECD BY: Iris Vazquez ENTERED: 06/10/21 09:28 SP TYPE: Lesion OTHR DR: Dr. Iqra Fallon MD Tissues: A - Skin of face, NOS B - Skin of neck, NOS C - Skin of face, NOS Procedures: Surgery Specimen Level IV HEADER OPERATION: Intradermal excision lesions PRE-OP DIAGNOSIS: Enlarging lesions TISSUE SUBMITTED: A ? Right cheek, previous hemangioma, B ? Left upper neck by chin, C ? Left lateral canthal area MICROSCOPIC DIAGNOSIS A. Skin lesion of right cheek, shave biopsy: Capillary hemangioma. B. Skin lesion of left upper neck, shave biopsy: Pigmented compound nevus with predominantly intradermal component. Epidermal inclusion cyst. C. Skin lesion of left lateral canthal region, shave biopsy: Pigmented compound nevus with predominantly intradermal component. AM:shirin 06/11/2021 MICROSCOPIC DESCRIPTION Slides are reviewed. GROSS DESCRIPTION A - Received in fixative is one container labeled with the patient's name and designated right cheek. The specimen consists of a fragment of phipps soft tissue measuring 0.2 x 0.2 x 0.1 cm. The specimen is totally submitted in one cassette. B - Received in fixative is one container labeled with the patient's name and designated left upper neck. The specimen consists of a piece of phipps-light brown skin measuring 0.2 x 0.2 x 0.1 cm. The specimen is totally submitted in one cassette. C - Received in fixative is one container labeled with the patient's name and designated left canthal area. The specimen consists of a piece of phipps-light brown skin measuring 0.4 x 0.2 x 0.1 cm. The specimen is totally submitted in one cassette. / JONG:shirin 06/10/2021 TC:5 CPT: 97003 x3
== END 2021-06-09 23:59 | disposition short-term general hospital (02) ==
LOC: LABSPEC 17:14
PROVIDERS: PCP Internal Medicine; Referring Provider Surgery; Visit Provider Surgery
DX: L98.9 Disorder of the skin and subcutaneous tissue, unspecified (principal)
CPT/HCPCS: 88305

== ENCOUNTER → 2022-02-05 | Outpatient (CLI) | payer MEDICAID, SELFPAY ==
[2022-02-05 15:41] LABS: Absolute Lymphocyte Count 2.48 X10^3/uL (0.83-4.51); Absolute Neutrophil Count 6.2 X10^3/uL (2.0-7.7); Basophil# 0.06 X10^3/uL; Basophil% 0.6 % (0-1); Eosinophil# 0.46 X10^3/uL; Eosinophils% 4.7 % (0-5); Hematocrit 40.3 % (37-47); Lymphocyte # 2.48 X10^3/ul (0.83-4.51); Lymphocyte % 25.2 % (19-41); Mean Corp Hgb Conc 32.3 g/dL (32-36); Mean Corpuscular Hgb 30.1 pg (27.0-32.0); Mean Corpuscular Volume 93.3 fL (81-99); Mean Platelet Vol. 11.6 fl (6.2-12.0); Monocyte# 0.68 X10^3/uL; Monocyte% 6.9 % (0-10); NRBC Flagged by Analyzer 0 % (0-5); Neutrophil # 6.15 X10^3/uL (2.7-7.7); Neutrophil % 62.4 % (47-70); Platelet Count 279 K/mm3 (150-450); RBC Distribution Width CV 12.6 % (11.6-14.6); RBC Distribution Width SD 43.6 fl (35.1-43.9); Red Blood Count 4.32 M/mm3 (4.2-5.4); White Blood Count 9.9 K/mm3 (4.4-11.0)
[2022-02-05 16:12] LABS: AST(SGOT) 18 U/L (15-37); Alanine Aminotransfer ALT/SGPT 28 U/L (13-56); Albumin, Serum 3.8 g/dL (3.2-5.0); Alkaline Phosphatase 65 U/L (45-117); Anion Gap 6 (5-15); BUN 15 mg/dL (7-18); BUN/Creat Ratio 19.4 RATIO (10-20); Calcium,Total 9.1 mg/dL (8.5-10.1); Chloride 106 mmol/L (98-107); Creatinine, Serum 0.77 mg/dL (0.55-1.02); EST Glomerular Filtration Rate 95 mL/min (>60); Est Glom Filt Rate - Afr Amer 115 mL/min (>60); Glucose 91 mg/dL (74-106); Potassium 3.6 mmol/L (3.5-5.1); Protein, Total 7.8 g/dL (6.4-8.2); Sodium Level 141 mmol/L (136-145)
== END | disposition home or self-care (01) ==
LOC: LAB 14:10
PROVIDERS: PCP Internal Medicine; Referring Provider Obstetrics & Gynecology; Visit Provider Obstetrics & Gynecology
DX: N93.9 Abnormal uterine and vaginal bleeding, unspecified (principal)
CPT/HCPCS: 36415; 80053; 85025

== ENCOUNTER → 2022-03-02 | Outpatient (CLI) | payer MEDICAID, SELFPAY ==
--- NOTE | 2022-03-02 | EMB_PTH ---
PATIENT: ANEL MILLARD LOC: [facility] U#:[id number] AGE/SX: 26/F ROOM: RE03/02/[address]: Dr. Dorothy Mcdermott MD : 1995 BED: DIS: 03/02/2022 SPEC #: [id number] RECD: 03/02/22 15:51 STATUS: CARMELLA RELakshmi #: [id number] ISMAEL: 03/02/22 00:[address]: Dorothy Mcdermott DEPT: SURGICAL PATHOLOGY RECD BY: Lara Cast ENTERED: 03/03/22 09:28 SP TYPE: ENDOM BX/C ALVIN DR: Dr. Iqra Fallon MD Tissues: Endometrium, NOS Procedures: Surgery Specimen Level IV HEADER OPERATION: Endometrial biopsy PRE-OP DIAGNOSIS: Abnormal uterine bleeding TISSUE SUBMITTED: Endometrial biopsy MICROSCOPIC DIAGNOSIS Endometrium, biopsy: Secretory endometrium. AM:shirin 03/04/2022 MICROSCOPIC DESCRIPTION Slides are reviewed. GROSS DESCRIPTION Received is one container labeled with the patient's name and not further designated. The specimen consists of multiple pieces of pink soft tissue that in aggregate measure 3 x 2.5 x 0.3 cm. The specimen is totally submitted in one cassette. / SJ:shirin 03/03/2022 TC:5 CPT: 27997
--- NOTE | 2022-03-02 12:28 | US_ITS ---
STUDY: ULTRASOUND OF THE FEMALE PELVIS - COMPLETE REASON FOR EXAM: Female, 26 years old. aub- HEAVY PERIODS -- IUD TO BE PLACED LATER TODAY PER PATIENT LMP: 01/30/2022. TECHNIQUE: Transabdominal and Transvaginal TECHNICAL QUALITY: Adequate. COMPARISON: None. FINDINGS: The uterus is anteverted and is in a midline position. The uterus measures 8.6 cm x 6 cm x 4.3 cm. Normal uterine cervix. The endometrium measures 9 mm in thickness, and is hyperechoic. There is no demonstrated endometrial mass. There is no demonstrated myometrial mass. I.U.D. - The patient does not have an I.U.D. The right ovary is visualized. The right ovary measures 4.1 cm x 4.8 cm x 3.3 cm. There is a 2.8 cm x 2.5 cm x 2.6 cm simple cyst. There is also evidence of a septated dominant follicle measuring 1.7 cm x 1.7 cm x 1.8 cm. There is no visualized right adnexal mass or complex lesion. There is normal arterial and normal venous vascularity. The left ovary is visualized. The left ovary measures 2.7 cm x 2.1 cm x 1.3 cm. There is no left ovarian cyst or ovarian mass. There is no visualized left adnexal mass or complex lesion. There is normal arterial and normal venous vascularity. There is no fluid in the cul-de-sac. The pre void volume of the bladder was 92 ml. US/Transvaginal Non- IMPRESSION: Simple cyst in the right ovary measuring 2.8 cm x 2.5 cm x 2.6 cm. Septated dominant follicle in the right ovary measuring 1.7 cm x 1.7 cm x 1.8 cm. Electronically Signed: Jan Naylor MD at 13:46 EDT ,
--- NOTE | 2022-03-02 12:28 | US_ITS ---
STUDY: ULTRASOUND OF THE FEMALE PELVIS - COMPLETE REASON FOR EXAM: Female, 26 years old. aub- HEAVY PERIODS -- IUD TO BE PLACED LATER TODAY PER PATIENT LMP: 01/30/2022. TECHNIQUE: Transabdominal and Transvaginal TECHNICAL QUALITY: Adequate. COMPARISON: None. FINDINGS: The uterus is anteverted and is in a midline position. The uterus measures 8.6 cm x 6 cm x 4.3 cm. Normal uterine cervix. The endometrium measures 9 mm in thickness, and is hyperechoic. There is no demonstrated endometrial mass. There is no demonstrated myometrial mass. I.U.D. - The patient does not have an I.U.D. The right ovary is visualized. The right ovary measures 4.1 cm x 4.8 cm x 3.3 cm. There is a 2.8 cm x 2.5 cm x 2.6 cm simple cyst. There is also evidence of a septated dominant follicle measuring 1.7 cm x 1.7 cm x 1.8 cm. There is no visualized right adnexal mass or complex lesion. There is normal arterial and normal venous vascularity. The left ovary is visualized. The left ovary measures 2.7 cm x 2.1 cm x 1.3 cm. There is no left ovarian cyst or ovarian mass. There is no visualized left adnexal mass or complex lesion. There is normal arterial and normal venous vascularity. There is no fluid in the cul-de-sac. The pre void volume of the bladder was 92 ml. US/Pelvic (Non ) IMPRESSION: Simple cyst in the right ovary measuring 2.8 cm x 2.5 cm x 2.6 cm. Septated dominant follicle in the right ovary measuring 1.7 cm x 1.7 cm x 1.8 cm. Electronically Signed: Jan Naylor MD at 13:46 EDT ,
== END | disposition home or self-care (01) ==
PROVIDERS: PCP Internal Medicine; Referring Provider Obstetrics & Gynecology; Visit Provider Obstetrics & Gynecology
DX: N92.0 Excessive and frequent menstruation with regular cycle (principal)
CPT/HCPCS: 76830; 76856; 88305

== ENCOUNTER → 2022-06-25 | Outpatient (CLI) | payer MEDICAID, SELFPAY ==
--- NOTE | 2022-06-25 15:56 | US_ITS ---
HISTORY: IUD placement. TECHNIQUE: Transabdominal and transvaginal pelvic ultrasound was performed with espinal scale , spectral Doppler, and color Doppler evaluation. 142 images. COMPARISON: 03/02/2022. FINDINGS: UTERUS: 10 x 3.8 x 4.8 cm. ENDOMETRIAL THICKNESS: 3 mm. Intrauterine device in place within the fundal endometrium. RIGHT OVARY: 1.6 x 2.6 x 2.1 cm. Vascular flow demonstrated. No adnexal masses LEFT OVARY: 2.7 x 1.9 x 2.8 cm with multiple follicles. Vascular flow demonstrated. No adnexal masses FREE FLUID: None. URINARY BLADDER: Unremarkable at 400 cc. US/Pelvic (Non ) IMPRESSION: Intrauterine device in place. Electronically Signed: Virginia Mike MD at 11:41 EST ,
== END | disposition home or self-care (01) ==
LOC: US 15:53
PROVIDERS: PCP Internal Medicine; Referring Provider Nurse Practitioner Women's Health; Visit Provider Nurse Practitioner Women's Health
DX: N93.9 Abnormal uterine and vaginal bleeding, unspecified (principal)
CPT/HCPCS: 76830; 76856

== ENCOUNTER 2022-10-12 08:43 | Day surgery (SDC) | payer MEDICAID, SELFPAY ==
[2022-09-29 14:19] LABS: Absolute Lymphocyte Count 2.92 X10^3/uL (0.83-4.51); Basophil# 0.06 X10^3/uL; Basophil% 0.5 % (0-1); Eosinophil# 0.37 X10^3/uL; Eosinophils% 3.3 % (0-5); Hematocrit 39.5 % (37-47); Hemoglobin 12.7 g/dL (12.0-15.0); Lymphocyte # 2.92 X10^3/ul (0.83-4.51); Lymphocyte % 26.3 % (19-41); Mean Corp Hgb Conc 32.2 g/dL (32-36); Mean Corpuscular Hgb 29.4 pg (27.0-32.0); Mean Corpuscular Volume 91.4 fL (81-99); Monocyte% 6.3 % (0-10); NRBC Flagged by Analyzer 0 % (0-5); Neutrophil # 7.02 X10^3/uL (2.7-7.7); Neutrophil % 63.2 % (47-70); Platelet Count 296 K/mm3 (150-450); RBC Distribution Width CV 12.4 % (11.6-14.6); RBC Distribution Width SD 41.2 fl (35.1-43.9); Red Blood Count 4.32 M/mm3 (4.2-5.4); White Blood Count 11.1 K/mm3 (4.4-11.0)
[2022-09-29 14:41] LABS: Magnesium 2.1 mg/dL (1.6-2.6)
[2022-10-12] VITALS (10 sets, daily range): BP systolic 111–137; BP diastolic 60–85; PULSE 60–85; RESP 14–18; TEMP 36.3–37; O2SAT 96–100; BMI 40.6
[2022-10-12] MEDS: Lactated Ringers 1,000 ML 40 ML IV (09:19)
[2022-10-12 09:21] LABS: Internal QC Validated? YES +Cl - CLEAR BKGD; Pregnancy, Urine Negative Negative
[2022-10-12] MEDS: Gabapentin 600 MG Tablet PO (09:21)
[2022-10-12] MEDS: Celecoxib 200 MG Capsule 400 MG PO (09:22)
[2022-10-12] MEDS: Acetaminophen 500 MG Tablet 1000 MG PO (09:22)
[2022-10-12] MEDS: dexAMETHasone 4 MG/ML Vial 8 MG IV (09:24)
[2022-10-12] MEDS: Magnesium 1 GM over 15 mins IV (09:24)
[2022-10-12] MEDS: Phenazopyridine 95 MG Tablet 190 MG PO (09:27)
[2022-10-12 09:36] LABS: Bedside Glucose 116 mg/dL (74-106)
--- NOTE | 2022-10-12 09:45 | HP.PCM_ITS ---
History and Physical Date of Admission: 10/12/22 Intake Vital Signs ? 10/08/2310:49 10/08/2310:50 Height 5 ft 5 in 5 ft 5 in Weight: 245 lb ? BMI 40.7 ? BP 113/76 ? 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 delivery delivered H/O spinal fusion History of excision of lesion History of tonsillectomy History of wisdom tooth extraction, class II edentulism Family History? Uncle Cancer ?? ? Non hodgkins lymphomaGrandmother Heart diseaseGrandfather Heart disease Social History? Smoking Status:? Never smoker alcohol intake:? never substance use type:? does not use caffeine:? No what type of physical activity do you participate in:? none seatbelt use:? always do you feel safe at home:? Yes additional social history:? khushi- lindsay DOES NOT USE ASPIRIN DOES USE IBUPROFEN ? HPI TRHBS cysto Details: ANEL MILLARD is a 27 year old who ( on vag, one section) presents due to heavy menses, passing large clots and failed IUD, 2 types of OCPs, and progesterone. She has 2 children, one was a and one was a . She now is experiencing pain with intercourse and she has a family history of endometriosis. EMB was benign and paps have been normal. Her mother was our patient here and had a hysterectomy with us. She did great and she recommends her daughter have a hysterectomy also. Anel's had a vasectomy and she states that she is 100% sure she does not want any more kids.? EMB benign ultrasound shows a 10 cm uterus History ? ? ? 3 ? Elective abortions ? Hx Para ? ? ? 2 ? Spontaneous abortions ? Hx # Term Pregnancies ? Ectopic pregnancies ? Hx # Pregnancies ? Multiple births ? # of living children ? ? ? 2 Past Pregnancies Del. Date Name GA/Weeks Outcome Route Bth Weight Infant Gen Labor Lgth Anesthesia Del Locatn Provider FOB 01/30/15 [place] 39 live - full term 8lbs 3oz Male ? spinal Rom [facility] ? 11/07/17 [place] 39 live - full term 8lbs 3 oz Female 7 hours none [facility] ? Delivery Date: 01/30/15? Last Updated by: Gayathri Potts ? ? ? No issues during . Scheduled c-secton due to scoliosis. Delivery Date: 11/07/17? Last Updated by: Gayathri Potts ? ? ? High blood pressure during . No issues during delivery. ROS Const ROS Unobtainable: All systems reviewed & are unremarkable except as noted in H Resp Resp: Reports system reviewed and no additional complaints, except as documented; Denies cough GI GI: Reports as per HPI Psych Psych: Reports system reviewed and no additional complaints, except as documented Exam Const General: cooperative, healthy appearing, comfortable and no acute distress Resp Effort & Inspection: normal respiratory effort Skin General: no rashes or lesions noted Psych Appearance: grossly normal Speech and Movement: speech and movement normal Coding Level of Care Code Off vis,est,level 4 Diagnoses Family history of skin cancer? Z80.8 Abnormal uterine bleeding? N93.9 Anxiety? 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 D49.2 Morbid obesity? E66.01 Neoplasm of skin of chin? D49.2 Neoplasm of skin of right cheek? D49.2 Hemangioma of skin and subcutaneous tissue? D18.01 Assessment and Plan Assessment and Plan (1) Family history of skin cancer: ?Status:?Acute (2) Abnormal uterine bleeding: ?Status:?Acute ?Comment: failed 2 types of ocp. EMB nl. Nl US except 2cm simple ovarian cyst/no pain. Mirena IUD inserted/removed. Will call if wants lysteda. (3) Anxiety: ?Status:?Acute ?Comment: counseling recommended. 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 I have discussed with the patient the risks, benefits, and alternatives of the procedure which include but are not limited to risks of anesthesia, bleeding, infection, possible damage to bowel, bladder, or surrounding vasculature which could lead to additional surgery to evaluate any complications.? Patient agrees to procedure and wishes to proceed.? ACOG/uptodate references given for additional information regarding procedure.? plan for total robotic hyst bs and cysto
--- NOTE | 2022-10-12 09:53 | DCINST_ITS ---
Discharge Instructions Diet Discharge Diet: No restrictions Activity May resume sexual activity in: 6 weeks Weight Bearing Status: Full weight bearing Dressing / Incision Call your doctor if your incision/area has: Continuous Slow Oozing, Sudden Increased Bleeding, Increased Pain/ Swelling, Increased Redness and Foul Smelling Discharge Call your doctor if you observe: Fever of 101 or Higher, Using more than 1 pad per hour, Shortness of breath, Chest pain and Uncontrolled pain Suture Line Care: Avoid Pulling/Pushing and Avoid Pinching/Bending Remove Dressing in: 1 week (if present) Cleanse incision/area with: Soap & Water and Keep Dressing Clean & Dry Follow Up Care Please Follow Up With: Marychuy Morris DO When: Call to make an appointment with your doctor for a postop visit in 2 and 6 weeks Test Results: Test results from this visit will be discussed in further detail at your follow- up appointment, if applicable. Discharge Plan Admission Primary Reason for Your Visit: hysterectomy Attending Provider: Marychuy Morris Primary Care Provider: Iqra Fallon Consulting Providers: Dionicio Garcia Discharge Orders/Prescriptions Prescriptions: New oxycodone-acetaminophen [Percocet] 5-325 mg tablet 1 tab PO Q4H PRN (Reason: pain) 7 Days Qty: 30 0RF Rx Instructions: 1-2 tabs q 4 hrs as needed for pain naproxen 500 mg tablet 500 mg PO BID PRN (Reason: pain) Qty: 30 0RF Continued multivitamin,lm-rfef-wdrhyoup tablet 1 tablet PO DAILY All Day Allergy (cetirizine) 10 mg Capsule 10 mg PO DAILY PRN (Reason: allergies) Referrals / Follow Up: Iqra Fallon MD [Primary Care Provider] - Disposition Disposition (needs filled in before D/C Order can be placed): Home, Self Care
[2022-10-12] MEDS: Cefazolin 2 GM in 0.9% Normal Saline 100 ML IV (10:27)
--- NOTE | 2022-10-12 10:40 | HYST_PTH ---
PATIENT: ANEL MILLARD LOC: [facility] [place] U[place][id number] AGE/SX: 27/F ROOM: RE10/12/[address]: Dr. Marychuy Morris DO : 1995 BED: DIS: 10/12/2022 SPEC #: [id number] RECD: 10/12/22 14:21 STATUS: CARMELLA CAMPBELL #: [id number] ISMAEL: 10/12/22 10:[address]: Marychuy Morris DEPT: SURGICAL PATHOLOGY RECD BY: Lara Cast ENTERED: 10/13/22 09:29 SP TYPE: HYSTERECT OTHR DR: MD Dr. Iqra Bill MD Tissues: Uterus, NOS Procedures: Surgery Specimen Level V HEADER OPERATION: ERAS, laparoscopic robotic hysterectomy, bilateral salpingectomy PRE-OP DIAGNOSIS: Abnormal uterine bleeding TISSUE SUBMITTED: Uterus, cervix, bilateral fallopian tubes MICROSCOPIC DIAGNOSIS Uterus, cervix, bilateral fallopian tubes, hysterectomy and bilateral salpingectomy: Cervix ? chronic inflammation. Endometrium ? proliferative endometrium. Myometrium ? adenomyosis. Bilateral fallopian tubes - no pathologic diagnosis. JONG:shirin 10/14/2022 MICROSCOPIC DESCRIPTION Slides are reviewed. GROSS DESCRIPTION Received in fixative is one container labeled with the patient's name and designated uterus. The specimen consists of a uterus with attached cervix and attached right and left fallopian tubes. The uterus with cervix measures 9.5 x 5.5 x 4.5 cm and weighs 92 gm. The ectocervix is grossly unremarkable. The endocervical canal measures 4.3 cm in length and is grossly unremarkable. The triangular endometrial cavity measures 3.5 x 2.6 cm. The velvety, reddish-phipps endometrium measures up to 0.2 cm in thickness. The myometrium measures 1.8 cm in average thickness and is free of mass lesions. The right and left fallopian tubes are similar in appearance with normal fimbrial ends and average lengths of 6.5 and average diameters of 1.0 cm. Buggy Loader sections are submitted in eight cassettes as follows: 1??anterior cervix, 2 - posterior cervix, 3 & 4 - anterior myometrial wall, 5 & 6 - posterior myometrial wall, 7??right fallopian tube, 8 - left fallopian tube. / AM:shirin 11/13/2022 TC:5 CPT: 79837
[2022-10-12] MEDS: Bupivacaine 0.25% 30 ML Vial (10:57)
--- NOTE | 2022-10-12 12:17 | OP.PCM_ITS ---
Problems Associated Problem List Diagnoses (1) Abnormal uterine bleeding: (2) Morbid obesity: Report of Operation Date of Procedure: 10/12/22 Pre-Operative Diagnosis: menorrhagia, abnormal uterine bleeding, failed conservative therapy, obesity Post-Operative Diagnosis: menorrhagia, abnormal uterine bleeding, failed conservative therapy, obesity Surgery/Procedure Performed:: Total robotic hysterectomy, bilateral salpingectom y, cystoscopy Description of Surgical Findings:: normal uterus, tubes, ovaries, and cervix. Surgeon: Marychuy Morris consulting utility forester: Lynn Cerda Type of Anesthesia: General Anesthesiologist: Sean Rodriguez Specimen's removed: uterus, tubes, cervix Drains: none Estimated Blood Loss (mL): 30cc Description of Procedure: Procedure: The patient was placed in the dorsal low lithotomy position and prepped and draped in the normal sterile fashion both abdominally and in the perineum. Her legs were placed in stirrups a May catheter was inserted into the urethra without difficulty. A weighted speculum was placed in the vagina and a single- tooth tenaculum was used to grasp the anterior lip of the cervix. Advincula uterine manipulator size 3.0 was inserted through the cervix without complication. It was then tied into place at the 2 and 10:00 locations on the cervix. Gloves were changed and attention was turned towards the abdomen. A pproximately 23 cm above the pubic symphysis in the midline, and after Marcaine injection, a 8 mm incision was made. An 8 mm trocar was inserted through the laparoscope, then inserted into the abdomen under direct visualization using the laparoscope. Good abdominal placement was noted and no complications were appreciated. An air seal device was utilized to create pneumoperitoneum. At 12 cm lateral to the midline on the left and right sides 8 mm accessory ports were placed. Next a left upper quadrant 8 mm fish hatchery assistant port site was placed. The patient was placed in steep Trendelenburg position. The robot was docked. The hysterectomy was initiated first by taking down the round ligament on each side using the vessel sealer device. The fallopian tubes were removed using the vessel sealer device followed by the broad ligament that was then and taken down using the vessel sealer device. Next the bladder flap was taken down without complication. This was done using monopolar cautery to the level of the cervical vaginal junction. After the bladder flap was created, uterine vessels were then isolated and cauterized using the vessel sealer device and EndoShears. At this point the uterine vessels were taken down further starting from the ascending branch, dissecting along the edges of the cervix to the level of the cervical vaginal junction with hemostasis appreciated. The cervical vaginal junction was then using monopolar cautery in a circumferential pattern across the superior aspect of the cervix. The specimen was delivered through the vagina and sent to pathology. The remaining vaginal cuff was then closed using a V lock suture. This was performed in a running technique. Excellent hemostasis was obtained and good closure was noted. Irrigation was then performed. All operative sites were noted to be hemostatic. A cystoscopy was performed with a 70 degree cystoscope through the urethra into the bladder without complication. The bladder was instilled with approximately 250 cc of normal saline. Intraoperative images were made. Ureteral orifices and jets were identified. No suture material was appreciated in the bladder. The bladder was then drained and cystoscope was removed. The abdominal cavity was again examined using the laparoscope after the robot was undocked. All operative sites were noted to be hemostatic. The trochars were removed under direct visualization without complication and pneumoperitoneum was reduced. At this point the skin was then closed using 4-0 Monocryl subcuticular stitch and sealed with surgical glue. The patient tolerated the procedure well sponge lap and needle counts were correct x2 the patient was taken to the recovery room in stable condition. Complications none Admit VTE Documentation VTE Present on Admission: No VTE Mechan Device Prophylaxis: SCD's VTE Pharm Prophylaxis ordered?: No Multi Select Codes Urinary/Genital Urinary/Genital CPT Codes: 42540 TLH+BS/O <250gr uterus
[2022-10-12] MEDS: Ondansetron 4 MG/2 ML Vial IM (14:02)
[2022-10-12] MEDS: Lactated Ringers 1,000 ML 100 ML IV (15:35)
== END 2022-10-12 17:30 | disposition home or self-care (01) ==
LOC: SDC 08:44 → AC 08:44
PROVIDERS: Anesthesiology; PCP Internal Medicine; Referring Provider Obstetrics & Gynecology; Visit Provider Obstetrics & Gynecology
PROC: 0UT90ZZ Resection of Uterus, Open Approach (ICD-10-PCS; CPT 58571; principal; 2022-10-12 10:20)
DX: N72 Inflammatory disease of cervix uteri (principal); E66.01 Morbid (severe) obesity due to excess calories; Z68.41 Body mass index [BMI] 40.0-44.9, adult; N80.03 Adenomyosis of the uterus; N92.0 Excessive and frequent menstruation with regular cycle; F41.9 Anxiety disorder, unspecified
CPT/HCPCS: 58571; S2900; 00840; 36415; 81025; 82962; 83735; 85025; 86850; 86900; 86901; 88307; J7120; J2405; J3475

== ENCOUNTER → 2024-12-25 | Outpatient (CLI) | payer MEDICAID, SELFPAY ==
--- NOTE | 2024-12-25 09:03 | BI_ITS ---
EXAM: DIAG MAMM W/CAD, BILAT N/A CLINICAL HISTORY: F, Age 29 y/o , RIGHT BREAST LUMP TECHNIQUE: DIAG MAMM W/CAD, BILAT. COMPARISON: This is a baseline study. FINDINGS: TISSUE DENSITY: The breasts are almost entirely fatty. Bilateral Breast Mammographic Findings: There is a 6.3 mm well-defined nodule in the central upper aspect of the left breast. This most likely represents a cyst or small lymph node. Correlation with ultrasound recommended. The right breast is unremarkable. BI/DIAG MAMM W/CAD, BILAT IMPRESSION: With the patient's history of a palpable lump in the right breast, targeted son ographic correlation recommended. Targeted sonographic correlation recommended to assess the small nodule in the central lateral aspect of the left breast. OVERALL FINAL ASSESSMENT BI-RADS 0: INCOMPLETE - NEED ADDITIONAL IMAGING EVALUATION. RECOMMENDATION: Ultrasound Recommended A letter with findings and recommendations will be mailed to the patient. Reading Location: [facility]
--- NOTE | 2024-12-25 09:03 | US_ITS ---
PROCEDURE: BREAST LIMITED UNILATERAL 12/25/2024 REASON FOR EXAM: F, Age 29 y/o , RIGHT BREAST LUMP Abnormal screening mammogram. COMPARISON: Prior mammogram done earlier in the day.. TECHNIQUE: BREAST LIMITED UNILATERAL. The central medial aspect of the upper quadrant of the left breast was examined with ultrasound. FINDINGS: The mammographic abnormality corresponds to a 6 mm x 6 mm x 4 mm well-defined hypoechoic nodule. This is at the 11 to 12 o'clock position of the breast at 4 cm from the nipple. Biopsy recommended. US/Breast Limited Unilateral IMPRESSION: 6 mm x 6 mm x 4 mm hypoechoic solid nodule at the 11 to 12 o'clock position of the breast at 4 cm from the nipple in the left breast, biopsy recommended. BI-RADS 4: SUSPICIOUS RECOMMENDATION: Routine annual follow-up in 1 Year Reading Location: [id number]
--- NOTE | 2024-12-25 09:51 | US_ITS ---
PROCEDURE: BREAST LIMITED UNILATERAL 12/25/2024 REASON FOR EXAM: F, Age 29 y/o , ABNORMAL MAMMO COMPARISON: Prior mammogram done earlier in the day.. TECHNIQUE: BREAST LIMITED UNILATERAL. The inferior lateral aspect of the right breast was examined with ultrasound. FINDINGS: No sonographic abnormality is seen. US/Breast Limited Unilateral IMPRESSION: No sonographic abnormality seen in the inferior lateral aspect of the right srini ast. BI-RADS 1: NEGATIVE RECOMMENDATION: Routine annual follow-up in 1 Year Reading Location: [id number]
== END | disposition home or self-care (01) ==
LOC: OPBI 09:02
PROVIDERS: PCP Family Medicine; Referring Provider Obstetrics & Gynecology; Visit Provider Obstetrics & Gynecology
DX: R92.8 Other abnormal and inconclusive findings on diagnostic imaging of breast (principal); N63.10 Unspecified lump in the right breast, unspecified quadrant
CPT/HCPCS: 77062; 76642; 77066; G0279

== ENCOUNTER → 2025-01-03 | Outpatient (CLI) | payer MEDICAID, SELFPAY ==
--- NOTE | 2025-01-03 | BRBX_PTH ---
PATIENT: ANEL MILLARD LOC: [facility] U#:[id number] AGE/SX: 29/F ROOM: RE01/03/[address]: Dr. Tiffany Uriarte MD : 1995 BED: DIS: 01/03/2025 SPEC #: [id number] RECD: 01/03/25 11:27 STATUS: CARMELLA RELakshmi #: [id number] ISMAEL: 01/03/25 00:[address]: Tiffany Uriarte DEPT: SURGICAL PATHOLOGY RECD BY: Abhishek Silver ENTERED: 01/03/25 13:40 SP TYPE: BREAST BX OTHR DR: Dr. Lydia Ga, DO Tissues: A - Left breast, NOS Procedures: Surgery Specimen Level IV HEADER OPERATION: Left breast biopsy PRE-OP DIAGNOSIS: Left breast biopsy TISSUE SUBMITTED: Left breast mass, 12o'clock, 4cm MICROSCOPIC DIAGNOSIS A. Left breast, 12 o'clock, 4 CMFN, mass, core biopsy: - Fibroadenoma. - Negative for malignancy. MICROSCOPIC DESCRIPTION Slides are reviewed. GROSS DESCRIPTION A. Received in formalin labeled with the patient's name and date of . Designated as left breast is a 2.3 x 1.0 x 0.1 cm aggregate of fragmented yellow tissue cores. Entirely submitted in 1 cassette. Cold ischemic time: UnknownFormalin fixation time: Unknown (No collection time listed on specimen requisition or specimen container) CA 01/03/2025 CPT:46391
--- NOTE | 2025-01-03 10:02 | US_ITS ---
PROCEDURE: US BREAST BIOPSY 1ST LESION 01/03/2025 REASON FOR EXAM: F, Age 29 y/o , LEFT BREAST MASS TECHNIQUE: US BREAST BIOPSY 1ST LESION COMPARISON: Prior exam(s) dating back to December 25, 2024.. FINDINGS: ULTRASOUND: Under direct sonographic guidance, the surgeon performed core biopsies of the hypoechoic nodule measuring 7 mm x 6 mm x 3 mm at the 12 o'clock position of the breast at 4 cm from the nipple. US/US Breast Biopsy 1st Lesion IMPRESSION: OVERALL FINAL ASSESSMENT: BIRADS 11 WAITING PATHOLOGY RECOMMENDATION: Routine annual follow-up in 1 Year Reading Location: [place] [id number]
--- NOTE | 2025-01-03 11:28 | PCM.OPRPT ---
Procedures Integumentary 16xxx-193xx: [id number] Bx breast 1st lesion us imag Operative Report (Standard) Operative Information Date of Procedure: 01/03/25 Pre-Operative Diagnosis: Left breast mass Post-Operative Diagnosis: Same Surgery/Procedure Performed: Ultrasound-guided left breast biopsy retail aide: No Type of Anesthesia: Local Procedure Start Time: 10:50 Procedure Stop Time: 01:10 Select all DRAINS/GRAFTS/IMPLANTS that apply: Implanted device Implanted device details: Bard dual ultraclip Special Medications: None Estimated Blood Loss: < 5 cc Specimen collected: Yes Description of specimen(s) removed: Left breast mass 12:00 4 cm from nipple Description of surgery: Procedure: Left ultrasound-guided core biopsy Indications: 29 year-old female with hypoechoic nodule at 12:00 in the left breast 4 centimeters from the nipple. Risk benefits were discussed the patient and she elected to proceed with ultrasound guided core biopsy with clip placement Description of procedure: Patient was brought into the ultrasound room in the left breast was marked. A timeout was completed verifying correct patient, procedure, site, specially, prior to beginning procedure. The left breast was prepped and draped in usual sterile fashion and using local anesthesia was obtained with 1% lidocaine with epi. The lesion was located with the ultrasound. Small incision was made with 11 blade to introduced the mammotome through the skin. Under ultrasound guidance multiple core samples were obtained using then 13-gauge mammotome and sent in formalin for pathology. The Bard dual ultra-clip was then deployed into the biopsy cavity under ultrasound guidance and a picture was taken. Upon completion procedure hemostasis was obtained and a Steri-Strip and OpSite were placed. Patient was then taken to the mammography suite for clip verification. The clip was verified. The patient tolerated the procedure well and was discharged from the breast imaging department good condition. Surgical Findings: See operative report Complications Complications: No
== END | disposition home or self-care (01) ==
LOC: OPUS 09:55
PROVIDERS: PCP Family Medicine; Referring Provider Surgery; Visit Provider Surgery
DX: D24.2 Benign neoplasm of left breast (principal)
CPT/HCPCS: 19083; 88305